=== PATIENT | female | born 1955 | race Caucasian/White ===

== ENCOUNTER → 2018-12-04 00:24 | Outpatient (CLI) | payer SELFPAY ==
[2018-09-01 12:41] VITALS: BMI 29.5
[2018-12-05 00:58] LABS: Thyroid Stim Hormone (TSH) 1.66 uIU/mL (0.358-3.74)
--- OUTSIDE RECORDS SUMMARY | 2019-02-08 20:39 | XMS RPT_ITS ---
:1955 Author Organization [facility] Care Team Providers Name Role Phone Malinda Leon NP-[facility] Attending Unavailable Malinda Leon Referring Unavailable PROBLEMS PROBLEMS DATE TYPE CONDITION / CODE ATTENDING STATUS SOURCE 12/05/2018 Unknown E03.9 - Edward, Active [place] Hypothyroidism, Malinda [facility] unspecified / Hospital E03.9(ICD-10) Repository PROCEDURES PROCEDURES No Procedure Records FoundRESULTS RESULTS OFFICE VISIT Observed: 12/06/2018 Status: F Source: [facility] 12:24 PM [facility] [place] REPOSITORY [facility] [address] [place] [address] OFFICE VISIT Date of Service: 12/04/18 MR#: [id number] Acct: [id number] Name: ISADORA CA Rep #: [id number] : 1955 Provider: KALEB Leon Age/Sex: 63/F Location: [facility] Status: Signed Intake Intake Visit Reasons: TSH Allergies No Known Allergies Allergy (Verified 09/01/18 12:44) Medications losartan 100 mg tablet 100 mg PO QDAY 90 Days #90 tab 09/01/18 [Rx Confirmed 09/01/18] levothyroxine 100 mcg tablet 100 mcg PO DAILY #90 tab 12/05/18 [Rx] PFSH Family History Other FH: throat cancer Heart disease Hypertension larnx cancer HPI HPI (General) HPI HPI: ISADORA CA, is a 63 F who presents to the office today for Assessment AND Plan Orders Orders: Coding Level of Care Code No Charge 12/06/18 1224 <Electronically signed by Malinda DOMINGUEZ> Date Malinda DOMINGUEZ CC: THYROID STIM HORMONE Collected: 12/04/2018 Status: F Source: [facility] (TSH) 4:00 PM [facility] REPOSITORY TYPE CODE TESTS RESULT OUT OF RANGE REFERENCE UNITS LAB L501.9520 0.358-3.74 uIU/mL Normal TSH 1.66 Performed By: #### [id number] #### [place] [facility] [address] [place], [address] OFFICE VISIT Observed: 09/01/2018 Status: F Source: [facility] 12:57 PM [facility] REPOSITORY After Hours [facility] [address] [place] [address] OFFICE VISIT Date of Service: 09/01/18 MR#: [id number] Acct: [id number] Name: ISADORA CA Rep #: [id number] : 1955 Provider: KALEB Leon Age/Sex: 62/F Location: [facility] Status: Signed Intake Vital Signs09/01/18 Height 5 ft 7.5 in 09/01/18 Weight: 191 lb Intake Visit Reasons: ITCHY, WATERY, RED EYES Accompanied by: Self Is patient in pain?: No Allergies No Known Allergies Allergy (Verified 09/01/18 12:44) Medications levothyroxine 100 mcg tablet 100 mcg PO DAILY 09/01/18 [History Confirmed 09/01/18] losartan 100 mg tablet 100 mg PO QDAY 90 Days #90 tab 09/01/18 [Rx Confirmed 09/01/18] prednisolone acetate 1 % eye drops,suspension 1 drp OPHTHALMIC TID 5 Days #10 ml 09/01/18 [Rx Confirmed 09/01/18] Is last menstrual period known: No Post menopausal: Yes PFSH Family History Other FH: throat cancer Heart disease Hypertension larnx cancer HPI HPI (General) HPI HPI: ISADORA CA, is a 62 F who presents to the office today for watery red eyes for 4 days . Thought it was infected and has been using her grandsons antibiotic eye drops sulfa based. She does wear contacts and had a problem with allergic reaction to some kind of contact solution. numbed her eyes with tetracaine then using fluorescein, dyed ou for no abrasions or FB lids clear Rinsed with NS well tolerated well Denies any pain or d/c or visual changes ROS Eyes Eyes: Positive for discharge (watery andvery little yellow in each corner) Exam Const Constitutional: Yes cooperative, Yes healthy appearing Orientation: Yes alert, awake and oriented x3 HENMT Head: Yes normocephalic Ear: Yes hearing grossly normal bilaterally Neck Neck: normal visual inspection Thyroid: thyroid normal Eyes Visual Reeder: Yes normal visual reeder by confrontation Periorbital: Yes periorbital findings normal Eyelid: Yes eyelids normal Pupils: Yes PERRLA Conjunctivae: Yes conjunctivae normal Sclera: Yes scleral abnormality Cornea: Yes fluorescein used (all clear and lids clear also) EOM: Yes EOM intact bilaterally Direct Ophthalmoscopy: Yes normal light reflex Chest Chest palpation AND inspection: Yes normal inspection of the chest Resp Effort AND Inspection: Yes normal respiratory effort Auscultation: Yes clear to auscultation bilaterally Cardio Palpitation: Yes normal PMI Rate: Yes regular rate Rhythm: Yes regular rhythm GI Inspection: Yes normal to inspection Auscultation: Yes normal bowel sounds Musc Cervical Spine: Yes cervical ROM normal Thoracic/Lumbar Spine: Yes thoracic and lumbar spine normal to inspection Skin General: no rashes or lesions noted Lesions: Yes no lesions Extrem General: Yes normal to inspection Neuro General: Yes alert and oriented x3 Cranial Nerves: Yes PERRLA Psych Appearance: Positive grossly normal Mood: Positive congruent mood Affect: Positive normal affect Assessment AND Plan Problems 1. Allergic eye reaction H57.9 2. Red eyes H57.89 Patient Instructions Use the eye drops for 5 days only then follow up with a waist cutter Stop the med for any problems and call increased the losartan to 100 mg a day Medications New: Coding Level of Care Code Off vis,est,level 2 Diagnoses Allergic eye reaction H57.9 Red eyes H57.89 09/01/18 1257 <Electronically signed by Malinda DOMINGUEZ> Date Malinda DOMINGUEZ CC: ALLERGIES ALLERGIES DATE TYPE / CODE NAME / CODE REACTION SEVERITY SOURCE 09/01/2018 Drug No Known Unknown [place] [facility]/4160 Allergies/F00 [facility] [address](SNOMED [id number](RXNOR Repository CT) M) ENCOUNTERS ENCOUNTERS ADMIT/DISCHARGE ACCOUNT ADMITTING ENCOUNTER LOCATION SOURCE NUMBER CLASS 12/04/2018 [id number] Ambulatory [facility] 3 [facility] ing:[facility]SPEC Repository PAYERS PAYERS ENCOUNTER GUARANTOR PAYER SUBSCRIBER SOURCE 12/04/2018 ISADORA Venegas [id number] Primary NOT GIVENUNK [facility] Insurance:SELF PAY [facility] [address]Pjb: [phone] Number: Effective Repository [phone] () Date:2018-12-04
== END ==
PROVIDERS: Referring Provider Nurse Practitioner; Visit Provider Nurse Practitioner
DX: E03.9 Hypothyroidism, unspecified (principal)
CPT/HCPCS: 84443

== ENCOUNTER → 2019-09-26 | Outpatient (CLI) | payer MEDICARE, SELFPAY ==
[2019-09-26 17:52] VITALS: BMI 18.1
[2019-09-27 00:15] LABS: Absolute Lymphocyte Count 2.39 X10^3/uL (0.83-4.51); Absolute Neutrophil Count 3.5 X10^3/uL (2.0-7.7); Basophil# 0.04 X10^3/uL; Basophil% 0.6 % (0-1); Eosinophil# 0.08 X10^3/uL; Eosinophils% 1.2 % (0-5); Hematocrit 42.1 % (37-47); Lymphocyte # 2.39 X10^3/ul (4.0); Lymphocyte % 36.9 % (19-41); Mean Corp Hgb Conc 33.3 g/dL (32-36); Mean Corpuscular Volume 96.3 fL (81-99); Mean Platelet Vol. 9.6 fl (6.2-12.0); Monocyte# 0.46 X10^3/uL; Monocyte% 7.1 % (0-10); NRBC Flagged by Analyzer 0 % (0-5); Platelet Count 216 K/mm3 (150-450); RBC Distribution Width CV 11.6 % (11.6-14.6); RBC Distribution Width SD 41.1 fl (35.1-43.9); Red Blood Count 4.37 M/mm3 (4.2-5.4); White Blood Count 6.5 K/mm3 (4.4-11.0)
[2019-09-27 00:31] LABS: Cholesterol 238 mg/dL (200); High Density Lipoprotein 57 mg/dL; Thyroid Stim Hormone (TSH) 1.75 uIU/mL (0.358-3.74); Triglycerides 177 mg/dL; Very Low Density Lipoprotein 35 mg/dL (5-40)
== END | disposition home or self-care (01) ==
PROVIDERS: Family Provider Nurse Practitioner; PCP Nurse Practitioner; Visit Provider Nurse Practitioner
DX: I10 Essential (primary) hypertension (principal); E03.9 Hypothyroidism, unspecified
CPT/HCPCS: 80061; 84443; 85025

== ENCOUNTER → 2020-10-06 | Outpatient (CLI) | payer MEDICARE, SELFPAY ==
[2020-10-06 19:53] VITALS: BMI 30.3
[2020-10-06 22:23] LABS: Absolute Lymphocyte Count 1.79 X10^3/uL (0.83-4.51); Absolute Neutrophil Count 2.7 X10^3/uL (2.0-7.7); Basophil# 0.04 X10^3/uL; Basophil% 0.8 % (0-1); Eosinophil# 0.09 X10^3/uL; Eosinophils% 1.8 % (0-5); Hematocrit 41.8 % (37-47); Hemoglobin 13.8 g/dL (12.0-15.0); Lymphocyte # 1.79 X10^3/ul (4.0); Lymphocyte % 35.2 % (19-41); Mean Corpuscular Hgb 32.6 pg (27.0-32.0); Mean Corpuscular Volume 98.8 fL (81-99); Mean Platelet Vol. 9.6 fl (6.2-12.0); Monocyte# 0.43 X10^3/uL; Monocyte% 8.5 % (0-10); NRBC Flagged by Analyzer 0 % (0-5); Neutrophil # 2.73 X10^3/uL (2.7-7.7); Neutrophil % 53.7 % (47-70); Platelet Count 225 K/mm3 (150-450); RBC Distribution Width SD 43.4 fl (35.1-43.9); Red Blood Count 4.23 M/mm3 (4.2-5.4); White Blood Count 5.1 K/mm3 (4.4-11.0)
[2020-10-06 22:35] LABS: ALB/GLOB Ratio 1.2 RATIO (0.9-2.4); AST(SGOT) 12 U/L (15-37); Alanine Aminotransfer ALT/SGPT 24 U/L (13-56); Albumin, Serum 3.9 g/dL (3.2-5.0); Alkaline Phosphatase 106 U/L (45-117); Anion Gap 3 (5-15); BUN 21 mg/dL (7-18); BUN/Creat Ratio 19.4 RATIO (10-20); Chloride 107 mmol/L (98-107); Cholesterol 208 mg/dL (200); Creatinine, Serum 1.08 mg/dL (0.55-1.02); EST Glomerular Filtration Rate 54 mL/min (>60); Est Glom Filt Rate - Afr Amer 65 mL/min (>60); Globulin 3.2 g/dL (2.2-4.2); Glucose 98 mg/dL (74-106); High Density Lipoprotein 49 mg/dL; Potassium 4.5 mmol/L (3.5-5.1); Protein, Total 7.1 g/dL (6.4-8.2); Sodium Level 143 mmol/L (136-145); Thyroid Stim Hormone (TSH) 2.52 uIU/mL (0.358-3.74); Triglycerides 280 mg/dL; Very Low Density Lipoprotein 56 mg/dL (5-40)
== END | disposition home or self-care (01) ==
PROVIDERS: PCP Nurse Practitioner; Referring Provider Nurse Practitioner; Visit Provider Nurse Practitioner
DX: E03.9 Hypothyroidism, unspecified (principal); I10 Essential (primary) hypertension
CPT/HCPCS: 80053; 80061; 84443; 85025

== ENCOUNTER 2021-12-22 21:59 | Outpatient (CLI) | payer MEDICARE, SELFPAY ==
[2021-12-22 22:17] LABS: Absolute Lymphocyte Count 2.55 X10^3/uL (0.83-4.51); Absolute Neutrophil Count 3.4 X10^3/uL (2.0-7.7); Basophil# 0.05 X10^3/uL; Basophil% 0.7 % (0-1); Eosinophil# 0.16 X10^3/uL; Eosinophils% 2.4 % (0-5); Hematocrit 41.8 % (37-47); Hemoglobin 14.1 g/dL (12.0-15.0); Lymphocyte # 2.55 X10^3/ul (0.83-4.51); Lymphocyte % 37.6 % (19-41); Mean Corp Hgb Conc 33.7 g/dL (32-36); Mean Corpuscular Hgb 32.4 pg (27.0-32.0); Mean Corpuscular Volume 96.1 fL (81-99); Mean Platelet Vol. 9.4 fl (6.2-12.0); Monocyte# 0.58 X10^3/uL; Monocyte% 8.5 % (0-10); NRBC Flagged by Analyzer 0 % (0-5); Neutrophil # 3.42 X10^3/uL (2.7-7.7); Neutrophil % 50.4 % (47-70); Platelet Count 236 K/mm3 (150-450); RBC Distribution Width CV 12.4 % (11.6-14.6); RBC Distribution Width SD 43.8 fl (35.1-43.9); Red Blood Count 4.35 M/mm3 (4.2-5.4); White Blood Count 6.8 K/mm3 (4.4-11.0)
[2021-12-22 22:32] LABS: Vitamin B12 336 pg/mL (211-911)
[2021-12-22 22:40] LABS: ALB/GLOB Ratio 1.2 RATIO (0.9-2.4); AST(SGOT) 11 U/L (15-37); Alanine Aminotransfer ALT/SGPT 22 U/L (13-56); Albumin, Serum 3.8 g/dL (3.2-5.0); Alkaline Phosphatase 89 U/L (45-117); Anion Gap 7 (5-15); BUN 19 mg/dL (7-18); BUN/Creat Ratio 18.6 RATIO (10-20); Calcium,Total 8.9 mg/dL (8.5-10.1); Chloride 102 mmol/L (98-107); Cholesterol 245 mg/dL (200); Creatinine, Serum 1.02 mg/dL (0.55-1.02); EST Glomerular Filtration Rate 57 mL/min (>60); Est Glom Filt Rate - Afr Amer 69 mL/min (>60); Globulin 3.2 g/dL (2.2-4.2); Glucose 93 mg/dL (74-106); High Density Lipoprotein 53 mg/dL; Potassium 4.1 mmol/L (3.5-5.1); Sodium Level 137 mmol/L (136-145); Triglycerides 225 mg/dL; Very Low Density Lipoprotein 45 mg/dL (5-40)
[2021-12-23 21:50] LABS: Thyroid Stim Hormone (TSH) 2.83 uIU/mL (0.358-3.74)
[2021-12-25 17:19] LABS: Vitamin D 1,25-Dihydroxy 21.4 pg/mL (19.9-79.3)
== END 2021-12-22 23:59 | disposition short-term general hospital (02) ==
PROVIDERS: PCP Nurse Practitioner; Visit Provider Nurse Practitioner
DX: I10 Essential (primary) hypertension (principal); E53.9 Vitamin B deficiency, unspecified; E55.9 Vitamin D deficiency, unspecified; H57.89 Other specified disorders of eye and adnexa; E03.9 Hypothyroidism, unspecified
CPT/HCPCS: 80053; 80061; 82607; 82652; 84443; 85025

== ENCOUNTER → 2023-01-09 | Outpatient (CLI) | payer MEDICARE, SELFPAY ==
[2023-01-09 22:14] LABS: Absolute Lymphocyte Count 2.14 X10^3/uL (0.83-4.51); Absolute Neutrophil Count 2.6 X10^3/uL (2.0-7.7); Basophil# 0.05 X10^3/uL; Basophil% 0.9 % (0-1); Eosinophil# 0.14 X10^3/uL; Eosinophils% 2.6 % (0-5); Hemoglobin 13.8 g/dL (12.0-15.0); Lymphocyte # 2.14 X10^3/ul (0.83-4.51); Lymphocyte % 39.3 % (19-41); Mean Corp Hgb Conc 33.7 g/dL (32-36); Mean Corpuscular Hgb 32.3 pg (27.0-32.0); Mean Platelet Vol. 9.7 fl (6.2-12.0); Monocyte% 9.2 % (0-10); NRBC Flagged by Analyzer 0 % (0-5); Neutrophil # 2.62 X10^3/uL (2.7-7.7); Platelet Count 224 K/mm3 (150-450); RBC Distribution Width CV 12.1 % (11.6-14.6); RBC Distribution Width SD 41.7 fl (35.1-43.9); Red Blood Count 4.27 M/mm3 (4.2-5.4); White Blood Count 5.5 K/mm3 (4.4-11.0)
[2023-01-09 22:40] LABS: ALB/GLOB Ratio 1.1 RATIO (0.9-2.4); AST(SGOT) 13 U/L (15-37); Alanine Aminotransfer ALT/SGPT 24 U/L (13-56); Albumin, Serum 3.7 g/dL (3.2-5.0); Alkaline Phosphatase 97 U/L (45-117); Anion Gap 7 (5-15); BUN 21 mg/dL (7-18); Chloride 105 mmol/L (98-107); Cholesterol 227 mg/dL (200); Creatinine, Serum 1.05 mg/dL (0.55-1.02); EST Glomerular Filtration Rate 55 mL/min (>60); Est Glom Filt Rate - Afr Amer 67 mL/min (>60); Globulin 3.4 g/dL (2.2-4.2); Glucose 107 mg/dL (74-106); High Density Lipoprotein 55 mg/dL; Potassium 4.2 mmol/L (3.5-5.1); Protein, Total 7.1 g/dL (6.4-8.2); Sodium Level 141 mmol/L (136-145); Thyroid Stim Hormone (TSH) 1.73 uIU/mL (0.358-3.74); Triglycerides 205 mg/dL; Very Low Density Lipoprotein 41 mg/dL (5-40)
== END | disposition home or self-care (01) ==
PROVIDERS: PCP Nurse Practitioner; Visit Provider Nurse Practitioner
DX: I10 Essential (primary) hypertension (principal); K21.9 Gastro-esophageal reflux disease without esophagitis; E03.9 Hypothyroidism, unspecified
CPT/HCPCS: 80053; 80061; 84443; 85025

== ENCOUNTER → 2023-02-24 | Outpatient (CLI) | payer MEDICARE, SELFPAY | END | disposition home or self-care (01) | PROVIDERS: PCP Nurse Practitioner; Referring Provider Nurse Practitioner; Visit Provider Nurse Practitioner | DX: N30.90 Cystitis, unspecified without hematuria (principal) | CPT/HCPCS: 87077; 87086; 87088; 87186 ==

== ENCOUNTER → 2024-01-15 | Outpatient (CLI) | payer MEDICARE, SELFPAY ==
[2024-01-15 22:29] LABS: Thyroid Stim Hormone (TSH) 1.59 uIU/mL (0.358-3.74)
== END | disposition home or self-care (01) ==
PROVIDERS: PCP Nurse Practitioner; Visit Provider Nurse Practitioner
DX: E03.9 Hypothyroidism, unspecified (principal); I10 Essential (primary) hypertension
CPT/HCPCS: 84443

== ENCOUNTER → 2024-10-01 | Outpatient (CLI) | payer MEDICARE, SELFPAY ==
[2024-10-01 23:47] LABS: ALB/GLOB Ratio 1.2 RATIO (0.9-2.4); AST(SGOT) 16 U/L (15-37); Alanine Aminotransfer ALT/SGPT 26 U/L (13-56); Albumin, Serum 3.5 g/dL (3.2-5.0); Alkaline Phosphatase 85 U/L (45-117); Anion Gap 3 (5-15); BUN 19 mg/dL (7-18); BUN/Creat Ratio 17.9 RATIO (10-20); Calcium,Total 8.9 mg/dL (8.5-10.1); Chloride 107 mmol/L (98-107); Cholesterol 251 mg/dL (200); Creatinine, Serum 1.06 mg/dL (0.55-1.02); EST Glomerular Filtration Rate 54 mL/min (>60); Est Glom Filt Rate - Afr Amer 66 mL/min (>60); Globulin 2.9 g/dL (2.2-4.2); Glucose 99 mg/dL (74-106); High Density Lipoprotein 51 mg/dL; Potassium 4.8 mmol/L (3.5-5.1); Protein, Total 6.4 g/dL (6.4-8.2); Sodium Level 141 mmol/L (136-145); Triglycerides 312 mg/dL; Very Low Density Lipoprotein 62 mg/dL (5-40)
== END | disposition home or self-care (01) ==
PROVIDERS: PCP Nurse Practitioner; Referring Provider Nurse Practitioner; Visit Provider Nurse Practitioner
DX: I10 Essential (primary) hypertension (principal); E03.9 Hypothyroidism, unspecified
CPT/HCPCS: 80053; 80061; 84443

== ENCOUNTER → 2025-03-20 | Outpatient (CLI) | payer MEDICARE, SELFPAY ==
[2025-03-20 22:22] LABS: Absolute Lymphocyte Count 2.42 X10^3/uL (0.83-4.51); Basophil# 0.04 X10^3/uL; Basophil% 0.5 % (0-1); Eosinophil# 0.12 X10^3/uL; Eosinophils% 1.6 % (0-5); Hematocrit 38.8 % (37-47); Hemoglobin 13.3 g/dL (12.0-15.0); Lymphocyte # 2.42 X10^3/ul (0.83-4.51); Lymphocyte % 32.7 % (19-41); Mean Corp Hgb Conc 34.3 g/dL (32-36); Mean Corpuscular Hgb 32.4 pg (27.0-32.0); Mean Corpuscular Volume 94.6 fL (81-99); Mean Platelet Vol. 9.6 fl (6.2-12.0); Monocyte# 0.78 X10^3/uL; Monocyte% 10.6 % (0-10); NRBC Flagged by Analyzer 0 % (0-5); Neutrophil # 4.01 X10^3/uL (2.7-7.7); Neutrophil % 54.3 % (47-70); Platelet Count 245 K/mm3 (150-450); RBC Distribution Width CV 12.3 % (11.6-14.6); RBC Distribution Width SD 43.1 fl (35.1-43.9); White Blood Count 7.4 K/mm3 (4.4-11.0)
[2025-03-21 06:24] LABS: ALB/GLOB Ratio 1.5 RATIO (0.9-2.4); AST(SGOT) 16 U/L (<=31); Alanine Aminotransfer ALT/SGPT 15 U/L (<=34); Albumin, Serum 4.2 g/dL (3.4-4.8); Alkaline Phosphatase 90 U/L (35-104); Anion Gap 12 (5-15); BUN 22 mg/dL (4-19); BUN/Creat Ratio 21.5 RATIO (10-20); Calcium,Total 9.3 mg/dL (7.6-11.0); Carbon Dioxide 25.8 mmol/L (21.0-32.0); Chloride 102 mmol/L (98-108); Cholesterol 213 mg/dL (<=200); EST Glomerular Filtration Rate 60 (>60); Globulin 2.8 g/dL (2.2-4.2); Glucose 66 mg/dL (70-99); High Density Lipoprotein 46 mg/dL; Low Density Lipoprotein Calc. 131 mg/dL; Potassium 4.1 mmol/L (3.3-5.1); Sodium Level 140 mmol/L (133-145); Total Bilirubin 0.28 mg/dL (0.00-1.30); Triglycerides 180 mg/dL; Very Low Density Lipoprotein 36 mg/dL (5-40); Vitamin B12 360 pg/mL (180-914); cholesterol:hdl ratio screen 4.65
== END | disposition home or self-care (01) ==
PROVIDERS: PCP Nurse Practitioner; Referring Provider Nurse Practitioner; Visit Provider Nurse Practitioner
DX: I10 Essential (primary) hypertension (principal); E53.9 Vitamin B deficiency, unspecified; E03.9 Hypothyroidism, unspecified; K21.9 Gastro-esophageal reflux disease without esophagitis
CPT/HCPCS: 80053; 80061; 82607; 84443; 85025

== ENCOUNTER → 2025-06-23 | Outpatient (CLI) | payer MEDICARE, SELFPAY ==
--- OUTSIDE RECORDS SUMMARY | 2025-06-23 23:04 | XMS RPT_ITS | CCD ---
Author Organization [facility] Care Team Providers Care [employer] Tech Name Role Phone Edward LOPEZ.BUSHRA, Malinda Venegas Primary Care Provide r Azar Munoz MD Unavailable Edward WEBSITE DEVELOPER-C, Malinda Primary Care Provider [phone] Edward WEBSITE DEVELOPER-C, Malinda Attending Provider [phone] Edward WEBSITE DEVELOPER-C, Malinda Referring Provider Edward WEBSITE DEVELOPER, Malinda Referring Unavailable Edward WEBSITE DEVELOPER, Malinda Primary Care Unavailable Edward WEBSITE DEVELOPER, Malinda Attending Unavailable Edward WEBSITE DEVELOPER, Malinda Referring Unavailable Edward WEBSITE DEVELOPER, Malinda Primary Care Unavailable Edward WEBSITE DEVELOPER, Malinda Attending Unavailable Allergies Allergy Classification Reported Allergen(s) Allergy Type Date of Onset Reaction(s) Facility (1 source) cefdinir Drug Allergy 03-27-2025 Diarrhea [facility] (1 source) Lisinopril Drug Allergy 10-01-2024 cough [facility] (1 source) Losartan Drug Allergy 10-01-2024 GERD [facility] (1 source) cefdinir Drug Allergy 03-27-2025 [facility] (1 source) Lisinopril Drug Allergy 10-01-2024 [facility] (1 source) Losartan Drug Allergy 10-01-2024 [facility] Medications Current Medications Medication Drug Class(es) Dates Sig (Normalized) Sig (Original) azithromycin 250 mg oral tablet (1 source) Macrolide Antimicrobial Start: 03-27-2025 take 2 tablets by mouth once daily, then take 1 tablet by mouth once daily at mealtime Azithromycin 250 mg tablet Active 0 PO daily March 27, 2025 12:00am orally daily; 2 po qd for 1 day then 1 po qd for 4 days with food or after eating 24 hr metoprolol succinate 50 mg extended release oral tablet (11 sources) beta-Adrenergic Kavon Start: 01-09-2023 End: 03-20-2025 take 1 tablet by mouth once daily Metoprolol Succinate 50 mg tablet extended release 24 hr Active 50 mg PO DAILY March 20, 2025 6:02pm Completed/Discontinued Medications Medication Drug Class(es) Dates Sig (Normalized) Sig (Original) cannabidiol 100 mg/ml oral solution (5 sources) take 10 mg by mouth twice daily cannabidiol (EPIDIOLEX) 100 mg/mL oral liquid Take 10 mg/kg/dose by mouth twice daily. 0 Active Comment on above: Take 10 mg/kg/dose b y mouth twice daily. cefdinir 300 mg oral capsule (1 source) Cephalosporin Antibacterial Start: 03-20-2025 End: 03-27-2025 take 1 capsule by mouth twice daily Cefdinir 300 mg capsule Discontinued 300 mg PO TWICE A DAY March 20, 2025 12:00am March 27, 2025 6:16pm cephalexin 250 mg oral capsule (5 sources) Cephalosporin Antibacterial Start: 06-21-2019 take 1 capsule by mouth once daily cephALEXin (KEFLEX) 250 mg capsule Take 1 capsule by mouth once daily. 5 capsule 0 06/21/2019 Active Comment on above: Take 1 capsule by [facility] once daily. cholecalciferol, vitamin D3, (VITAMIN D3 ORAL) (2 sources) cholecalciferol, vitamin D3, (VITAMIN D3 ORAL) Take by mouth. 0 Active Comment on above: Take by mouth. ciprofloxacin 500 mg oral tablet (7 sources) Quinolone Antimicrobial Start: 02-24-2023 End: 01-15-2024 take 1 tablet by mouth twice daily Ciprofloxacin Hcl (Cipro) 500 mg tablet Discontinued 500 mg PO TWICE A DAY February 24, 2023 12:00am January 15, 2024 6:38pm Start: 07-30-2021 End: 08-16-2021 take 1 tablet by mouth twice daily Ciprofloxacin Hcl (Cipro) 500 mg tablet Discontinued 500 mg PO TWICE A DAY July 30, 2021 12:00am August 16, 2021 8:03pm cyanocobalamin, vitamin B-12, (VITAMIN B12 ORAL) (2 sources) cyanocobalamin, vitamin B-12, (VITAMIN B12 ORAL) Take by mouth. 0 Active Comment on above: Take by mouth. docosahexaenoic acid/epa (FISH OIL ORAL) (2 sources) docosahexaenoic acid/epa (FISH OIL ORAL) Take by mouth. 0 Active Comment on above: Take by mouth. famotidine 40 mg oral tablet (4 sources) Histamine-2 Receptor Antagonist Start: 2022 End: 2022 take 1 tablet by mouth once daily Famotidine 40 mg tablet Discontinued 40 mg PO DAILY January 09, 2023 1:00am February 24, 2023 3:13pm hydroCHLOROthiazide 12.5 mg oral tablet (4 sources) Thiazide Diuretic Start: 2023 End: 2024 take 1 tablet by mouth once daily in the morning Hydrochlorothiazide 12.5 mg tablet Discontinued 12.5 mg PO EVERY MORNING October 15, 2024 6:23pm March 20, 2025 5:53pm HYDROCHLOROTHIAZ LARS ORAL Take by mouth. 0 Active Comment on above: Take by mouth. 2 ml hylan g-f 20 8 mg/ml prefilled syringe (2 sources) Start: 03-16-2022 End: 03-16-2022 hylan G-F 20 2 mL injection (SYNVISC) Start: 03-02-2022 End: 03-02-2022 hylan G-F 20 2 mL injection (SYNVISC) ibuprofen 800 mg oral tablet (5 sources) Nonsteroidal Anti-inflammatory Drug Start: 06-20-2019 take 1 tablet by mouth every eight hours as needed ibuprofen (MOTRIN) 800 mg tablet Take 1 tablet by mouth every 8 hours as needed for Pain. 30 tablet 3 06/20/2019 Active Comment on above: Take 1 tablet by barb th every 8 hours as needed for Pain. levothyroxine sodium 0.1 mg oral tablet (20 sources) l-Thyroxine Start: 09-01-2018 End: 10-02-2024 take 1 tablet by mouth once daily Levothyroxine 100 mcg tablet Discontinued 100 ug PO DAILY December 05, 2018 10:14pm September 27, 2019 3:22pm Comment on above: Take 100 mcg by mout h daily before breakfast. losartan potassium 50 mg oral tablet (20 sources) Angiotensin 2 Receptor Kavon Start: 10-01-2024 End: 10-01-2024 take 1 tablet by mouth once daily Losartan 50 mg tablet Discontinued 50 mg PO daily October 01, 2024 1:00am October 01, 2024 7:24pm Start: 09-26-2019 End: 01-09-2023 take 1 tablet by mouth once daily Losartan 50 mg tablet Discontinued 50 mg PO DAILY December 22, 2021 5:35pm January 09, 2023 8:51pm Start: 09-01-2018 End: 08-27-2019 take 1 tablet by mouth once daily Losartan 100 mg tablet Discontinued 100 mg PO daily September 01, 2018 12:00am August 26, 2019 12:00am August 27, 2019 12:07am Comment on above: Take 100 mg by mouth once daily. 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 prednisoLONE acetate 10 mg/ml ophthalmic suspension (4 sources) Corticosteroid Start: 09-01-20 End: 09-06-20 Prednisolone Acetate 1 % drops,suspension Discontinued 1 NMA OPHTHALMIC THREE TIMES A DAY 08 24September 01, 2018 12:00am September 05, 2018 12:00am September 06, 2018 12:11am predniSONE 20 mg oral tablet (3 sources) Start: 02-25-20 End: 01-15-20 take 2 tablets by mouth once daily Prednisone 20 mg tablet Discontinued 40 mg PO DAILY February 24, 2023 12:00am January 15, 2024 6:38pm Start: 02-24-2023 End: 01-15-2024 take 40 mg by mouth once daily Prednisone Discontinued 40 MG PO DAILY February 23, 2023 11:00pm January 15, 2024 5:38pm Turmeric extract (2 sources) TURMERIC ORAL Ta ke by mouth. 0 Active Comment on above: Take by mouth. Problems Active Problems Problem Classification Problem Date Documented Date Episodic/Chronic Chronic obstructive pulmonary disease and bronchiectasis (1 source) Bronchitis; Translations: [Bronchitis, not specified as acute or chronic] 03-20-2025 Episodic Esophageal disorders (4 sources) Gastroesophageal reflux disease; Translations: [Gastro-esophageal reflux disease without esophagitis] 01-09-2023 Chronic Essential hypertension (10 sources) Essential hypertension; Translations: [Essential (primary) hypertension] Onset: 06-11-2019 06-11-2019 Chronic Nutritional deficiencies (4 sources) Vitamin D deficiency; Translations: [Vitamin D deficiency, unspecified] 12-22-2021 Chronic Nutritional deficiencies (4 sources) Vitamin B deficiency; Translations: [Vitamin B deficiency, unspecified] 12-22-2021 Episodic Osteoarthritis (12 sources) Arthritis of left knee; Translations: [Unilateral primary osteoarthritis, left knee] Onset: 06-11-2019 06-11-2019 Chronic Other bone disease and musculoskeletal deformities (4 sources) Bone cyst of hand; Translations: [Other cyst of bone, unspecified hand] 12-18-2019 Episodic Other bone disease and musculoskeletal deformities (4 sources) Bone cyst of right foot; Translations: [Solitary bone cyst, right ankle and foot] 12-18-2019 Episodic Other eye disorders (4 sources) Disorder of eye; Translations: [Unspecified disorder of eye and adnexa] 09-01-2018 Episodic Other eye disorders (4 sources) Red eye; Translations: [Other specified disorders of eye and adnexa] 09-01-2018 Episodic Other nervous system disorders (1 source) Difficulty walking; Translations: [Difficulty in walking, not elsewhere classified] 11-08-2024 Chronic Other non-traumatic joint disorders (1 source) Pain in left knee; Translations: [Pain in left knee] Episodic Other non-traumatic joint disorders (8 sources) Hip pain; Translations: [Pain in right hip] 08-16-2021 Episodic Other non-traumatic joint disorders (1 source) Pain in left knee; Translations: [Left knee pain] 11-08-2024 Episodic Other upper respiratory disease (3 sources) Acute bronchospasm; Translations: [Acute bronchospasm] 02-24-2023 Episodic Other upper respiratory infections (1 source) Acute maxillary sinusitis; Translations: [Acute maxillary sinusitis, unspecified] 03-20-2025 Episodic Residual codes; unclassified (1 source) Pain; Translations: [Pain, unspecified] Episodic Thyroid disorders (9 sources) Hypothyroidism; Translations: [Other specified hypothyroidism] Onset: 06-11-2019 06-11-2019 Chronic Urinary tract infections (8 sources) Hematuria co-occurrent and due to cystitis; Translations: [Cystitis, unspecified with hematuria] 07-30-2021 Episodic Past or Other Problems Problem Classification Problem Date Documented Da te Episodic/Chronic Neoplasms of unspecified nature or uncertain behavior (1 source) Neoplasm of uncertain behavior of connective and soft tissue; Translations: [Neoplasm of uncertain behavior of connective and other soft tissue] Onset: 12-25-2019 12-25-2019 Episodic Unclassified (1 source) Problem Results Test Name Value Interpretation Reference Range Facility Comprehensive Metabolic Prof [facility] 03-21-2025 Albumin [Mass/Vol] 4.2 g/dL Normal 3.4-4.8 [facility] Comment on above: Performed By: #### L 503.0106, L100.0100, L500.4050, L500.4100, [id number] #### [facility] [address] [place], [address] Albumin/Globulin [Mass ratio] 1.5 {ratio} Normal 0.9-2.4 [facility] Comment on above: Performed By: #### L 503.0106, L100.0100, L500.4050, L500.4100, [id number] #### [facility] [address] [place], [address] ALK PHOS 90 U/L Normal 35-104 [facility] Comment on above: Performed By: #### L 503.0106, L100.0100, L500.4050, L500.4100, [id number] #### [facility] [address] [place], [address] ALT [Catalytic activity/Vol] 15 U/L Normal <=34 [facility] Comment on above: Performed By: #### L 503.0106, L100.0100, L500.4050, L500.4100, [id number] #### [facility] [address] [place], [address] AST [Catalytic activity/Vol] 16 U/L Normal <=31 [facility] Comment on above: Performed By: #### L 503.0106, L100.0100, L500.4050, L500.4100, [id number] #### [facility] [address] [place], [address] Bilirubin [Mass/Vol] 0.28 mg/dL Normal 0.00-1.30 [facility] Comment on above: Performed By: #### L 503.0106, L100.0100, L500.4050, L500.4100, [id number] #### [facility] [address] [place], [address] BUN/CRE 21.5 RATIO High 10-20 [facility] Comment on above: Performed By: #### L 503.0106, L100.0100, L500.4050, L500.4100, [id number] #### [facility] [address] [place], [address] Calcium [Mass/Vol] 9.3 mg/dL Normal 7.6-11.0 [facility] Comment on above: Performed By: #### L 503.0106, L100.0100, L500.4050, L500.4100, [id number] #### [facility] [address] [place], [address] Chloride [Moles/Vol] 102 mmol/L Normal 98-108 [facility] Comment on above: Performed By: #### L 503.0106, L100.0100, L500.4050, L500.4100, [id number] #### [facility] [address] [place], [address] CO2 [Moles/Vol] 25.8 mmol/L Normal 21.0-32.0 [facility] Comment on above: Performed By: #### L 503.0106, L100.0100, L500.4050, L500.4100, [id number] #### [facility] [address] [place], [address] Creatinine [Mass/Vol] 1.00 mg/dL Normal 0.70-1.20 [facility] Comment on above: Performed By: #### L 503.0106, L100.0100, L500.4050, L500.4100, [id number] #### [facility] [address] [place], [address] GAP 12 Normal 5-15 [facility] Comment on above: Performed By: #### L 503.0106, L100.0100, L500.4050, L500.4100, [id number] #### [facility] [address] [place], [address] GFR/1.73 sq M.predicted among non-blacks MDRD (S/P/Bld) [Vol rate/Area] 60 mL/min/{1.73_m2} Normal >60 [facility] Comment on above: Result Comment: mL/m in/1.73m2 CKD-EPI Creatinine Equation (2020) Performed By: #### L 503.0106, L100.0100, L500.4050, L500.4100, [id number] #### [facility] [address] [place], [address] Globulin (S) [Mass/Vol] 2.8 g/dL Normal 2.2-4.2 [facility] Comment on above: Performed By: #### L 503.0106, L100.0100, L500.4050, L500.4100, [id number] #### [facility] [address] [place], [address] Glucose [Mass/Vol] 66 mg/dL Low 70-99 [facility] Comment on above: Performed By: #### L 503.0106, L100.0100, L500.4050, L500.4100, [id number] #### [facility] [address] [place], [address] Potassium [Moles/Vol] 4.1 mmol/L Normal 3.3-5.1 [facility] Comment on above: Performed By: #### L 503.0106, L100.0100, L500.4050, L500.4100, [id number] #### [facility] [address] [place], [address] Sodium [Moles/Vol] 140 mmol/L Normal 133-145 [facility] Comment on above: Performed By: #### L 503.0106, L100.0100, L500.4050, L500.4100, [id number] #### [facility] [address] [place], [address] T PROT 7.0 g/dL Normal 5.9-8.4 [facility] Comment on above: Performed By: #### L 503.0106, L100.0100, L500.4050, L500.4100, [id number] #### [facility] [address] [place], [address] Urea nitrogen [Mass/Vol] 22 mg/dL High 4-19 [facility] Comment on above: Performed By: #### L 503.0106, L100.0100, L500.4050, L500.4100, [id number] #### [facility] [address] [place], [address] Lipid Profileon 03-21-2025 CHOL:HDL 4.65 Normal [facility] Comment on above: Performed By: #### L 503.0106, L100.0100, L500.4050, L500.4100, [id number] #### [facility] [address] [place], [address] Cholesterol [Mass/Vol] 213 mg/dL High <=200 [facility] Comment on above: Result Comment: Chol esterol level, Desirable <200 mg/dL Borderline high cholesterol 200-239 mg/dL High cholesterol >=240 mg/dL Recommendations of the NCEP Adult Treatment Panel for the following risk-cutoff thresholds for the [place] population. Performed By: #### L 503.0106, L100.0100, L500.4050, L500.4100, [id number] #### [facility] [address] [place], [address] Cholesterol in HDL [Mass/Vol] 46 mg/dL Normal [facility] Comment on above: Result Comment: Marlee onal Cholesterol Education Program (NCEP) guidelines: <40 mg/dL: Low HDL-cholesterol (major risk factor for CHD) >= 60 mg/dL: High HDL-cholesterol (negative risk factor for CHD) HDL-cholesterol is affected by a number of factors, e.g. smoking, exercise, hormones, sex and age. Performed By: #### L 503.0106, L100.0100, L500.4050, L500.4100, [id number] #### [facility] [address] [place], [address] Cholesterol in LDL [Mass/Vol] 131 mg/dL Normal [facility] Comment on above: Result Comment: Bord bhmujl=834-661 mg/dL Higher Kfxw=886 mg/dL or greater Performed By: #### L 503.0106, L100.0100, L500.4050, L500.4100, [id number] #### [facility] [address] [place], [address] Cholesterol in VLDL [Mass/Vol] 36 mg/dL Normal 5-40 [facility] Comment on above: Performed By: #### L 503.0106, L100.0100, L500.4050, L500.4100, [id number] #### [facility] [address] [place], [address] Triglyceride [Mass/Vol] 180 mg/dL Normal [facility] Comment on above: Result Comment: The drugs N-Acetylcysteine and Metamizole may falsely depress this assay. Normal range: <150 mg/dL Borderline High: 150-199 mg/dL High: 200-499 mg/dL Very High: >500 mg/dL Performed By: #### L 503.0106, L100.0100, L500.4050, L500.4100, [id number] #### [facility] [address] [place], [address] Thyroid Stim Hormone (TSH)on 03-21-2025 TSH 1.300 uIU/mL Normal 0.300-4.200 [facility] Comment on above: Performed By: #### L 503.0106, L100.0100, L500.4050, L500.4100, [id number] #### [facility] [address] [place], [address] Vitamin B12on 03-21-2025 Cobalamin (Vitamin B12) [Mass/Vol] 360 pg/mL Normal 180-914 [facility] Comment on above: Performed By: #### L 503.0106, L100.0100, L500.4050, L500.4100, [id number] #### [facility] [address] [place], [address] Absolute lymphocyte countOrd ered By: Malinda Leon on 03-20-2025 Lymphocytes Auto (Unsp spec) [#/Vol] 2.42 10*3/uL 0.83-4.51 [facility] Absolute neutrophil countOrd ered By: Malinda Leon on 03-20-2025 Neutrophils (Bld) [#/Vol] 4.0 10*3/uL 2.0-7.7 [facility] Anion gap in Serum or Plasma Ordered By: Malinda Leon on 03-20-2025 Anion gap [Moles/Vol] 12 mmol/L 5-15 [facility] Automated lymphocyte count a s percentage of total leukocytesOrdered By: Malinda Leon on 03-20-2025 Lymphocytes/100 WBC Auto (Unsp spec) 32.7 % 19-41 [facility] BUN/creatinine ratioOrdered By: Malinda Bashirson on 03-20-2025 Urea nitrogen/Creatinine [Mass ratio] 21.5 mg/mg High 10-20 [facility] Basophil percentageOrdered B y: Malindaleny BashirLeon on 03-20-2025 Basophils/100 WBC (Bld) 0.5 % 0-1 [facility] Bilirubin, totalOrdered By: Malinda Leon on 03-20-2025 Bilirubin [Mass/Vol] 0.28 mg/dL 0.00-1.30 [facility] CBC W/Diff, Automatedon Absolute Lymph 2.42 X10 3/uL Normal 0.83-4.51 [facility] Comment on above: Performed By: #### L 503.0106, L100.0100, L500.4050, L500.4100, [id number] #### [facility] [address] [place], [address] Absolute Neut 4.0 X10 3/uL Normal 2.0-7.7 [facility] Comment on above: Performed By: #### L 503.0106, L100.0100, L500.4050, L500.4100, [id number] #### [facility] [address] [place], [address] Basophils/100 WBC (Bld) 0.5 % Normal 0-1 [facility] Comment on above: Performed By: #### L 503.0106, L100.0100, L500.4050, L500.4100, [id number] #### [facility] [address] [place], [address] Eosinophils/100 WBC (Bld) 1.6 % Normal 0-5 [facility] Comment on above: Performed By: #### L 503.0106, L100.0100, L500.4050, L500.4100, [id number] #### [facility] [address] [place], [address] Erythrocyte distribution width (RBC) [Ratio] 12.3 % Normal 11.6-14.6 [facility] Comment on above: Performed By: #### L 503.0106, L100.0100, L500.4050, L500.4100, [id number] #### [facility] [address] [place], [address] Hematocrit (Bld) [Volume fraction] 38.8 % Normal 37-47 [facility] Comment on above: Performed By: #### L 503.0106, L100.0100, L500.4050, L500.4100, [id number] #### [facility] [address] [place], [address] Hemoglobin (Bld) [Mass/Vol] 13.3 g/dL Normal 12.0-15.0 [facility] Comment on above: Performed By: #### L 503.0106, L100.0100, L500.4050, L500.4100, [id number] #### [facility] [address] [place], [address] IG% 0.300 Normal 0.0-0.9 [facility] Comment on above: Result Comment: IG% - Immature Granulocytes (promyelocytes, myelocytes and metamyelocytes) > 1% indicates that a LEFT SHIFT is Present. Performed By: #### L 503.0106, L100.0100, L500.4050, L500.4100, [id number] #### [facility] [address] [place], [address] Lymphocytes/100 WBC (Bld) 32.7 % Normal 19-41 [facility] Comment on above: Performed By: #### L 503.0106, L100.0100, L500.4050, L500.4100, [id number] #### [facility] [address] [place], [address] MCH (RBC) [Entitic mass] 32.4 pg High 27.0-32.0 [facility] Comment on above: Performed By: #### L 503.0106, L100.0100, L500.4050, L500.4100, [id number] #### [facility] [address] [place], [address] MCHC (RBC) [Mass/Vol] 34.3 g/dL Normal 32-36 [facility] Comment on above: Performed By: #### L 503.0106, L100.0100, L500.4050, L500.4100, [id number] #### [facility] [address] [place], [address] MCV (RBC) [Entitic vol] 94.6 fL Normal 81-99 [facility] Comment on above: Performed By: #### L 503.0106, L100.0100, L500.4050, L500.4100, [id number] #### [facility] [address] [place], [address] Monocytes/100 WBC (Bld) 10.6 % High 0-10 [facility] Comment on above: Performed By: #### L 503.0106, L100.0100, L500.4050, L500.4100, [id number] #### [facility] [address] [place], [address] Neutrophils/100 WBC (Bld) 54.3 % Normal 47-70 [facility] Comment on above: Performed By: #### L 503.0106, L100.0100, L500.4050, L500.4100, [id number] #### [facility] [address] [place], [address] Nucleated RBC (Bld) [#/Vol] 0 10*3/uL Normal 0-5 [facility] Comment on above: Performed By: #### L 503.0106, L100.0100, L500.4050, L500.4100, [id number] #### [facility] [address] [place], [address] Platelet mean volume (Bld) [Entitic vol] 9.6 fL Normal 6.2-12.0 [facility] Comment on above: Performed By: #### L 503.0106, L100.0100, L500.4050, L500.4100, [id number] #### [facility] [address] [place], [address] Platelets (Bld) [#/Vol] 245 10*3/uL Normal 150-450 [facility] Comment on above: Performed By: #### L 503.0106, L100.0100, L500.4050, L500.4100, [id number] #### [facility] [address] [place], [address] RBC (Bld) [#/Vol] 4.10 10*6/uL Low 4.2-5.4 [facility] Comment on above: Performed By: #### L 503.0106, L100.0100, L500.4050, L500.4100, L501.9520 #### [facility] [address] [place], [address] RDW SD 43.1 fl Normal 35.1-43.9 [facility] Comment on above: Performed By: #### L 503.0106, L100.0100, L500.4050, L500.4100, [id number] #### [facility] [address] [place], [address] WBC (Bld) [#/Vol] 7.4 10*3/uL Normal 4.4-11.0 [facility] Comment on above: Performed By: #### L 503.0106, L100.0100, L500.4050, L500.4100, [id number] #### [facility] [address] [place], [address] Calculated very low density lipoprotein (VLDL) cholesterol measurementOrdered By: Malinda Leon on 03-20-2025 Calculated very low density lipoprotein (VLDL) cholesterol measurement 36 mg/dL 5-40 [facility] Carbon dioxide, total [Moles /volume] in Central venous bloodOrdered By: Malinda Leon on 03-20-2025 CO2 [Moles/Vol] 25.8 mmol/L 21.0-32.0 [facility] Chloride assayOrdered By: Do ra Leon on 03-20-2025 Chloride [Moles/Vol] 102 mmol/L 98-108 [facility] Eosinophil percentageOrdered By: Malinda Leon on 03-20-2025 Eosinophils/100 WBC (Bld) 1.6 % 0-5 [facility] Erythrocyte distribution wid th ratioOrdered By: Malinda Leon on 03-20-2025 Erythrocyte distribution width (RBC) [Ratio] 12.3 % 11.6-14.6 [facility] Erythrocyte distribution wid th standard deviationOrdered By: Malinda Leon on 03-20-2025 Erythrocyte distribution width (RBC) [Ratio] 43.1 fl 35.1-43.9 [facility] Glomerular filtration rate ( GFR) estimation/1.73 sq m using serum, plasma, or whole bOrdered By: Malinda Leon on 03-20-2025 GFR/1.73 sq M.predicted among non-blacks MDRD (S/P/Bld) [Vol rate/Area] 60 mL/min/{1.73_m2} >60 [facility] Comment on above: mL/min/1.73m2 CKD-EP I Creatinine Equation (2020) Hematocrit Auto (Bld) [Volum e fraction]Ordered By: Malinda Leon on 03-20-2025 Hematocrit (Bld) [Volume fraction] 38.8 % 37-47 [facility] Hemoglobin measurementOrdere d By: Malinda Leon on 03-20-2025 Hemoglobin (Bld) [Mass/Vol] 13.3 g/dL 12.0-15.0 [facility] Immature granulocytes/100 WB C Auto (Bld)Ordered By: Malinda Leon on 03-20-2025 Immature granulocytes/100 WBC (Bld) 0.300 % 0.0-0.9 [facility] Comment on above: IG% - Immature Granu locytes (promyelocytes, myelocytes and metamyelocytes) > 1% indicates that a LEFT SHIFT is Present. LDL calc ser/plasOrdered By: Malinda Leon on 03-20-2025 Cholesterol in LDL [Mass/Vol] 131 mg/dL [facility] Comment on above: Uouaozoqwm=381-854 m g/dL & Higher Vxrh=415 mg/dL or greater Laboratory - Chemistry and C hemistry - challengeOrdered By: Malinda Leon on 03-20-2025 AST [Catalytic activity/Vol] 16 U/L <32 [facility] MCV (mean corpuscular volume ) determinationOrdered By: Malinda Leon on 03-20-2025 MCV (RBC) [Entitic vol] 94.6 fL 81-99 [facility] Mean corpuscular hemoglobin (MCH) determinationOrdered By: Malinda Leon on 03-20-2025 MCH (RBC) [Entitic mass] 32.4 pg High 27.0-32.0 [facility] Mean corpuscular hemoglobin concentration (MCHC) determinationOrdered By: Malinda Leon on 03-20-2025 MCHC (RBC) [Mass/Vol] 34.3 g/dL 32-36 [facility] Mean platelet volume determi nationOrdered By: Malinda Leon on 03-20-2025 Platelet mean volume (Bld) [Entitic vol] 9.6 fL 6.2-12.0 [facility] Monocyte percentageOrdered B y: Malinda Leon on 03-20-2025 Monocytes/100 WBC (Bld) 10.6 % High 0-10 [facility] Neutrophil percentageOrdered By: Malinda Leon on 03-20-2025 Neutrophils/100 WBC (Bld) 54.3 % 47-70 [facility] Nucleated red blood cell per centageOrdered By: Malinda Leon on 03-20-2025 Nucleated RBC/100 WBC (Bld) [Ratio] 0 % 0-5 [facility] Platelet countOrdered By: Do ra Leon on 03-20-2025 Platelets (Bld) [#/Vol] 245 10*3/uL 150-450 [facility] Potassium measurement (mass/ volume)Ordered By: Malinda Leon on 03-20-2025 Potassium (Unsp spec) [Mass/Vol] 4.1 mmol/L 3.3-5.1 [facility] RBC Auto (Bld) [#/Vol]Ordere d By: Malinda Leon on 03-20-2025 RBC (Bld) [#/Vol] 4.10 10*6/uL Low 4.2-5.4 [facility] Screening total cholesterol/ high density lipoprotein (HDL) cholesterol ratioOrdered By: Malinda Leon on 03-20-2025 Cholesterol.total/Edita sterol in HDL [Mass ratio] 4.65 {ratio} [facility] Serum creatinine measurement (mass/volume)Ordered By: Malinda Leon on 03-20-2025 Creatinine [Mass/Vol] 1.00 mg/dL 0.70-1.20 [facility] Serum globulin measurementOr dered By: Malinda Leon on 03-20-2025 Globulin (S) [Mass/Vol] 2.8 g/dL 2.2-4.2 [facility] Serum glucose measurement (m ass/volume)Ordered By: Malinda Leon on 03-20-2025 Glucose [Mass/Vol] 66 mg/dL Low 70-99 [facility] Serum or plasma alanine varela otransferase (ALT) measurementOrdered By: Malinda Leon on 03-20-2025 ALT [Catalytic activity/Vol] 15 U/L <35 [facility] Serum or plasma albumin mildred urement (mass/volume)Ordered By: Malinda Leon on 03-20-2025 Albumin [Mass/Vol] 4.2 g/dL 3.4-4.8 [facility] Serum or plasma albumin/glob ulin mass ratioOrdered By: Malinda Leon on 03-20-2025 Albumin/Globulin [Mass ratio] 1.5 {ratio} 0.9-2.4 [facility] Serum or plasma alkaline micky sphatase measurementOrdered By: Malinda Leon on 03-20-2025 ALP [Catalytic activity/Vol] 90 U/L 35-104 [facility] Serum or plasma calcium mildred urement (mass/volume)Ordered By: Malinda Leon on 03-20-2025 Calcium [Mass/Vol] 9.3 mg/dL 7.6-11.0 [facility] Serum or plasma cholesterol in HDL measurement (mass/volume)Ordered By: Malinda Leon on 03-20-2025 Cholesterol in HDL [Mass/Vol] 46 mg/dL >40 [facility] Comment on above: National Cholesterol Education Program (NCEP) guidelines:<40 mg/dL: Low HDL-cholesterol (major risk factor for CHD)>= 60 mg/dL: High HDL-cholesterol (negative risk factor for CHD)HDL-cholesterol is affected by a number of factors, e.g. smoking, exercise, hormones, sex and age. Serum or plasma cholesterol measurement (mass/volume)Ordered By: Malinda Leon on 03-20-2025 Cholesterol [Mass/Vol] 213 mg/dL High <201 [facility] Comment on above: Cholesterol level, D esirable <200 mg/dLBorderline high cholesterol 200-239 mg/dLHigh cholesterol >=240 mg/dLRecommendations of the NCEP Adult Treatment Panel for the following risk-cutoff thresholds for the [place] population. Serum or plasma urea nitroge n measurement (mass/volume)Ordered By: Malinda Leon on 03-20-2025 Urea nitrogen [Mass/Vol] 22 mg/dL High 4-19 [facility] Sodium levelOrdered By: Malinda Leon on 03-20-2025 Sodium [Moles/Vol] 140 mmol/L 133-145 [facility] TSH DL <= 0.005 mIU/L QnOrde red By: Malinda Leon on 03-20-2025 TSH Qn 1.300 uIU/mL 0.300-4.200 [facility] Total proteinOrdered By: Tulio Leon on 03-20-2025 Protein [Mass/Vol] 7.0 g/dL 5.9-8.4 [facility] Triglycerides measurementOrd ered By: Malinda Leon on 03-20-2025 Triglyceride [Mass/Vol] 180 mg/dL <199 [facility] Comment on above: The drugs N-Acetylcy steine and Metamizole may falsely depress this assay. Normal range: <150 mg/dLBorderline High: 150-199 mg/dLHigh: 200-499 mg/dLVery High: >500 mg/dL Vitamin B12 ser/plasOrdered By: Malinda Leon on 03-20-2025 Cobalamin (Vitamin B12) [Mass/Vol] 360 pg/mL 180-914 [facility] White blood cell (WBC) count Ordered By: Malinda Leon on 03-20-2025 WBC (Bld) [#/Vol] 7.4 10*3/uL 4.4-11.0 [facility] Comprehensive Metabolic Prof ilon 10-01-2024 Albumin [Mass/Vol] 3.5 g/dL Normal 3.2-5.0 [facility] Comment on above: Performed By: #### L 500.4050, L500.4100, L501.9520 #### [facility] [address] [place], [address] Albumin/Globulin [Mass ratio] 1.2 {ratio} Normal 0.9-2.4 [facility] Comment on above: Performed By: #### L 500.4050, L500.4100, L501.9520 #### [facility] [address] [place], [address] ALK P 85 U/L Normal 45-117 [facility] Comment on above: Performed By: #### L 500.4050, L500.4100, L501.9520 #### [facility] [address] [place], [address] ALT [Catalytic activity/Vol] 26 U/L Normal 13-56 [facility] Comment on above: Performed By: #### L 500.4050, L500.4100, L501.9520 #### [facility] [address] [place], [address] AST [Catalytic activity/Vol] 16 U/L Normal 15-37 [facility] Comment on above: Performed By: #### L 500.4050, L500.4100, L501.9520 #### [facility] [address] [place], [address] Bilirubin [Mass/Vol] 0.50 mg/dL Normal 0.20-1.00 [facility] Comment on above: Result Comment: For patients on eltrombopag therapy, use of Dimension [place] TBIL is not recommended. Performed By: #### L 500.4050, L500.4100, L501.9520 #### [facility] [address] [place], [address] BUN/CRE 17.9 RATIO Normal 10-20 [facility] Comment on above: Performed By: #### L 500.4050, L500.4100, [id number] #### [facility] [address] [place], [address] CA,Total 8.9 mg/dL Normal 8.5-10.1 [facility] Comment on above: Performed By: #### L 500.4050, L500.4100, [id number] #### [facility] [address] [place], [address] Chloride [Moles/Vol] 107 mmol/L Normal 98-107 [facility] Comment on above: Performed By: #### L 500.4050, L500.4100, [id number] #### [facility] [address] [place], [address] CO2 [Moles/Vol] 31.0 mmol/L Normal 21.0-32.0 [facility] Comment on above: Performed By: #### L 500.4050, L500.4100, [id number] #### [facility] [address] [place], [address] Creatinine [Mass/Vol] 1.06 mg/dL High 0.55-1.02 [facility] Comment on above: Result Comment: The validity of the calculated GFR GFRAA in patients over 70 years has not been determined. Clinical correlation is essential. Performed By: #### L 500.4050, L500.4100, L501.9520 #### [facility] [address] [place], [address] EST GFR - AA 66 mL/min Normal >60 [facility] Comment on above: Result Comment: Afri can [place] GFR Calc Performed By: #### L 500.4050, L500.4100, [id number] #### [facility] [address] [place], [address] GAP 3 Low 5-15 [facility] Comment on above: Performed By: #### L 500.4050, L500.4100, [id number] #### [facility] [address] [place], [address] GFR/1.73 sq M.predicted among non-blacks MDRD (S/P/Bld) [Vol rate/Area] 54 mL/min/{1.73_m2} Low >60 [facility] Comment on above: Result Comment: Non- GFR Calc Performed By: #### L 500.4050, L500.4100, [id number] #### [facility] [address] [place], [address] Globulin (S) [Mass/Vol] 2.9 g/dL Normal 2.2-4.2 [facility] Comment on above: Performed By: #### L 500.4050, L500.4100, [id number] #### [facility] [address] [place], [address] Glucose [Mass/Vol] 99 mg/dL Normal 74-106 [facility] Comment on above: Performed By: #### L 500.4050, L500.4100, [id number] #### [facility] [address] [place], [address] Potassium [Moles/Vol] 4.8 mmol/L Normal 3.5-5.1 [facility] Comment on above: Performed By: #### L 500.4050, L500.4100, [id number] #### [facility] [address] [place], [address] Sodium [Moles/Vol] 141 mmol/L Normal 136-145 [facility] Comment on above: Performed By: #### L 500.4050, L500.4100, [id number] #### [facility] [address] [place], [address] T PROT 6.4 g/dL Normal 6.4-8.2 [facility] Comment on above: Performed By: #### L 500.4050, L500.4100, [id number] #### [facility] [address] [place], [address] Urea nitrogen [Mass/Vol] 19 mg/dL High 7-18 [facility] Comment on above: Performed By: #### L 500.4050, L500.4100, L501.9520 #### [facility] [address] [place], [address] Lipid Profileon 10-01-2024 Cholesterol [Mass/Vol] 251 mg/dL High 200 [facility] Comment on above: Result Comment: <200 mg/dL Desirable 200-240 mg/dL Borderline >240 mg/dL High Risk Performed By: #### L 500.4050, L500.4100, L501.9520 #### [facility] [address] [place], [address] Cholesterol in HDL [Mass/Vol] 51 mg/dL Normal [facility] Comment on above: Result Comment: The drugs N-Acetylcysteine and Metamizole may falsely depress this assay. Reference Range HDL <40 mg/dL Low HDL Cholesterol HDL >or= 60 mg/dL High HDL Cholesterol Performed By: #### L 500.4050, L500.4100, L501.9520 #### [facility] [address] [place], [address] Cholesterol in LDL [Mass/Vol] 138 mg/dL High 0-130 [facility] Comment on above: Performed By: #### L 500.4050, L500.4100, [id number] #### [facility] [address] [place], [address] Cholesterol in VLDL [Mass/Vol] 62 mg/dL High 5-40 [facility] Comment on above: Performed By: #### L 500.4050, L500.4100, [id number] #### [facility] [address] [place], [address] Triglyceride [Mass/Vol] 312 mg/dL High [facility] Comment on above: Result Comment: The drugs N-Acetylcysteine and Metamizole may falsely depress this assay. Serum Triglycerides Reference Interval Normal <150 mg/dL Borderline high 150 - 199 mg/dL High 200 - 499 mg/dL Very High > or = 500 mg/dL Performed By: #### L 500.4050, L500.4100, L501.9520 #### [facility] [address] [place], [address] Thyroid Stim Hormone (TSH)on 10-01-2024 TSH 2.950 uIU/mL Normal 0.358-3.740 [facility] Comment on above: Performed By: #### L 500.4050, L500.4100, [id number] #### [facility] [address] [place], [address] Serum or plasma thyroid stim ulating hormone (TSH) measurement (units/volume)Ordered By: Malinda Leon on 01-15-2024 TSH Qn 1.59 uIU/mL 0.358-3.74 [facility] Culture, urineOrdered By: Do ra Leon on 02-26-2023 Bacteria identified Cx Nom (U) Escherichia coli [facility] Absolute lymphocyte countOrd ered By: Malinda Leon on 01-09-2023 Lymphocytes Auto (Unsp spec) [#/Vol] 2.14 10*3/uL 0.83-4.51 [facility] Basophil percentageOrdered B y: Malinda Leon on 01-09-2023 Basophils/100 WBC (Bld) 0.9 % 0-1 [facility] Bilirubin [Mass/Vol] 0.50 mg/dL 0.20-1.00 [facility] Comment on above: For patients on eltr ombopag therapy, use of Dimension [place] TBIL is not recommended. Chloride [Moles/Vol] 105 mmol/L 98-107 [facility] Cholesterol [Mass/Vol] 227 mg/dL <200 [facility] Comment on above: <200 mg/dL Desirable 200-240 mg/dL Borderline >240 mg/dL High Risk Eosinophils/100 WBC (Bld) 2.6 % 0-5 [facility] Glucose [Mass/Vol] 107 mg/dL 74-106 [facility] Comment on above: Fasting Glucose resu lt from 100 to 125 mg/dL suggests IMPAIRED HOMEOSTASIS per A.D.A. criteria. Neutrophils (Bld) [#/Vol] 2.6 10*3/uL 2.0-7.7 [facility] Neutrophils/100 WBC (Bld) 48.0 % 47-70 [facility] Potassium [Moles/Vol] 4.2 mmol/L 3.5-5.1 [facility] Protein [Mass/Vol] 7.1 g/dL 6.4-8.2 [facility] Sodium [Moles/Vol] 141 mmol/L 136-145 [facility] Triglyceride [Mass/Vol] 205 mg/dL <199 [facility] Comment on above: The drugs N-Acetylcy steine and Metamizole may falsely depress this assay.Serum Triglycerides Reference Interval Normal <150 mg/dL Borderline high 150 - 199 mg/dL High 200 - 499 mg/dL Very High > or = 500 mg/dL WBC (Bld) [#/Vol] 5.5 10*3/uL 4.4-11.0 [facility] Blood erythrocytes count (nu mber/volume)Ordered By: Malinda Leon on 01-09-2023 RBC (Bld) [#/Vol] 4.27 10*6/uL 4.2-5.4 [facility] Blood hemoglobin measurement (mass/volume)Ordered By: Malinda Leon on 01-09-2023 Hemoglobin (Bld) [Mass/Vol] 13.8 g/dL 12.0-15.0 [facility] Blood lymphocytes/100 leukoc ytesOrdered By: Malinda Leon on 01-09-2023 Lymphocytes/100 WBC (Bld) 39.3 % 19-41 [facility] Blood monocytes/100 leukocyt esOrdered By: Malinda Leon on 01-09-2023 Monocytes/100 WBC (Bld) 9.2 % 0-10 [facility] Blood platelet mean volumeOr dered By: Malinda Leon on 01-09-2023 Platelet mean volume (Bld) [Entitic vol] 9.7 fL 6.2-12.0 [facility] Determination of erythrocyte mean corpuscular volume (MCV)Ordered By: Malinda Leon on 01-09-2023 MCV (RBC) [Entitic vol] 96.0 fL 81-99 [facility] Hematocrit Auto (Bld) [Volum e fraction]Ordered By: Malinda Leon on 01-09-2023 Hematocrit (Bld) [Volume fraction] 41.0 % 37-47 [facility] - Chemistry and C hemistry - challengeOrdered By: Malinda Leon on 01-09-2023 ALP [Catalytic activity/Vol] 97 U/L 45-117 [facility] ALT [Catalytic activity/Vol] 24 U/L 13-56 [facility] CO2 [Moles/Vol] 29.0 mmol/L 21.0-32.0 [facility] Globulin (S) [Mass/Vol] 3.4 g/dL 2.2-4.2 [facility] Urea nitrogen/Creatinine [Mass ratio] 20.0 mg/mg 10-20 [facility] - Hematology and Cell countsOrdered By: Malinda Leon on 01-09-2023 Erythrocyte distribution width (RBC) [Entitic vol] 41.7 fL 35.1-43.9 [facility] Erythrocyte distribution width (RBC) [Ratio] 12.1 % 11.6-14.6 [facility] Immature granulocytes/100 WBC (Bld) 0.000 % 0.0-0.9 [facility] Comment on above: IG% - Immature Granu locytes (promyelocytes, myelocytes and metamyelocytes) > 1% indicates that a LEFT SHIFT is Present. MCH (RBC) [Entitic mass] 32.3 pg 27.0-32.0 [facility] Nucleated RBC/100 WBC (Bld) [Ratio] 0 % 0-5 [facility] MCHC Auto (RBC) [Mass/Vol]Or dered By: Malinda Leon on 01-09-2023 MCHC (RBC) [Mass/Vol] 33.7 g/dL 32-36 [facility] No Panel InformationOrdered By: Malinda Leon on 01-09-2023 Estimated GFR (MDRD) Amer 67 mL/min >60 [facility] Comment on above: GFR Calc Estimated GFR (MDRD) Non-Af Amer 55 mL/min >60 [facility] Comment on above: Non- GFR Calc Thyroid Stimulating Hormone (TSH) 1.73 uIU/mL 0.358-3.74 [facility] Platelets bldOrdered By: Tulio Leon on 01-09-2023 Platelets (Bld) [#/Vol] 224 10*3/uL 150-450 [facility] Serum or plasma albumin mildred urement (mass/volume)Ordered By: Malinda Leon on 01-09-2023 Albumin [Mass/Vol] 3.7 g/dL 3.2-5.0 [facility] Serum or plasma albumin/glob ulin mass ratioOrdered By: Malinda Leon on 01-09-2023 Albumin/Globulin [Mass ratio] 1.1 {ratio} 0.9-2.4 [facility] Serum or plasma calcium mildred urement (mass/volume)Ordered By: Malinda Leon on 01-09-2023 Calcium [Mass/Vol] 9.0 mg/dL 8.5-10.1 [facility] Serum or plasma cholesterol in HDL measurement (mass/volume)Ordered By: Malinda Leon on 01-09-2023 Cholesterol in HDL [Mass/Vol] 55 mg/dL >40 [facility] Comment on above: The drugs N-Acetylcy steine and Metamizole may falsely depress this assay. Reference Range HDL <40 mg/dL Low HDL Cholesterol HDL >or= 60 mg/dL High HDL Cholesterol Serum or plasma cholesterol in VLDL measurement (mass/volume)Ordered By: Malinda Leon on 01-09-2023 Cholesterol in VLDL [Mass/Vol] 41 mg/dL 5-40 [facility] Serum or plasma creatinine m easurement (mass/volume)Ordered By: Malinda Leon on 01-09-2023 Creatinine [Mass/Vol] 1.05 mg/dL 0.55-1.02 [facility] Comment on above: The validity of the calculated GFR & GFRAA in patients over 70 years has not been determined. Clinical correlation is essential. Serum or plasma low density lipoprotein (LDL) cholesterol measurement (mass/volume)Ordered By: Malinda Leon on 01-09-2023 Cholesterol in LDL [Mass/Vol] 131 mg/dL 0-130 [facility] Serum or plasma urea nitroge n measurement (mass/volume)Ordered By: Malinda Leon on 01-09-2023 Urea nitrogen [Mass/Vol] 21 mg/dL 7-18 [facility] Thin prep Papanicolaou smear with manual screeningOrdered By: Malinda Leon on 01-09-2023 Thin prep Papanicolaou smear with manual screening 13 U/L 15-37 [facility] Thin prep Papanicolaou smear with manual screening 7 5-15 [facility] CNOVon 03-16-2022 CNOV Office Visit (ORMDNA ) CRISSY RAMOS ([id number]) 1955 F Date Time Provider Department 03/16/22 8:00 AM GARY VERGARA During your visit today, we recorded the following information about you: Gary Vergara MD 03/22/2022 7:42 AM Signed SUBJECTIVE: Here for the third and final injection of synvisc into left knee. Patient had no significant discomfort with the 1st or 2nd injections. OBJECTIVE: left knee continues to have mild effusion, positive crepitants and decreased ROM. ASSESSMENT: left knee pain secondary to osteoarthritis PLAN: 1. Injection of 3rd and final dose of synvisc through Betadine cleansed inferolateral insertion site. 2. Follow up 1 months' time for repeat evaluation Large Joint Arthro/Inj: L knee joint Informed Consent Consent Obtained: Verbal [place] Protocol A moment to CARE was completed. SIGN IN Personnel directly involved with the procedure wore the appropriate PPE. Special Equipment: N/A Patient/Surrogate Stated/Verified: Patient name, Date of , Relevant allergies and Intended procedure TIME OUT Intended patient and procedure match the source document(s). Consent documented and matches the intended procedure. Relevant labs, photos, and/or imaging studies have been reviewed. Correct side/site marked and visible. Medications required for procedure verified. No fire risk assessment and interventions applicable. No implant(s) inserted. 03/16/2022 8:04 AM The procedure site was prepped in the usual sterile fashion. Site: L knee joint Medications: 2 mL hylan G-F 20 16 mg/2 mL Outcome: Tolerated well, no immediate complications Post-injection instructions were reviewed with the patient and the patient voiced understanding of these instructions. SIGN OUT No specimen collected. No instruments, equipment or retained foreign bodies applicable. Post-procedure follow-up management communicated and Plan of Care Visit completed when applicable Referring Provider: GARY VERGARA [[id number]] Allergies As of Date: 03/16/2022 (No Known Allergies) Date Reviewed: 03/16/2022 Reviewed by: Eliana Guaman Ct - Fully Assessed Reason for Visit: synvisc #3 [Other] Primary Visit Diagnosis:Primary osteoarthritis of left knee [M17.12] Order(s):Large Joint Arthro/Inj: L knee joint [DQV162] Order #: [id number] [] hylan G-F 20 2 mL injection (SYNVISC)Disp: Rfl: Prescriptions as of 03/22/2022 - TURMERIC ORAL Take by mouth. - cyanocobalamin, vitamin B-12, (VITAMIN B12 ORAL) Take by mouth. - cholecalciferol, vitamin D3, (VITAMIN D3 ORAL) Take by mouth. - docosahexaenoic acid/epa (FISH OIL ORAL) Take by mouth. - HYDROCHLOROTHIAZIDE ORAL Take by mouth. - cephALEXin (KEFLEX) 250 mg capsule Take 1 capsule by mouth once daily. - ibuprofen (MOTRIN) 800 mg tablet Take 1 tablet by mouth every 8 hours as needed for Pain. - losartan (COZAAR) 100 mg tablet Take 100 mg by mouth once daily. - levothyroxine (SYNTHROID) 100 mcg tablet Take 100 mcg by mouth daily before breakfast. - cannabidiol (EPIDIOLEX) 100 mg/mL oral liquid Take 10 mg/kg/dose by mouth twice daily. Problem List As Of Date 03/16/2022 Noted Resolved Essential hypertension [I10] 06/11/2019 Other specified hypothyroidism [E03.8] 06/11/2019 Arthritis of left knee [M17.12] 06/11/2019 Prescriptions ordered this encounter Disp Refills Start End HYLAN G-F 20 16 MG/2 ML INTRA-ARTICU* 03/16/2022 03/16/2022 Route: Inj-ORTHO Encounter Status:Closed by GARY VERGARA on 03/22/22 [facility] CNOVon 03-09-2022 CNOV Office Visit (ORMDNA ) CRISSY RAMOS ([id number]) 1955 F Date Time Provider Department 03/09/22 4:15 PM GARY VERGARA During your visit today, we recorded the following information about you: Gary Vergara MD 03/09/2022 5:13 PM Signed SUBJECTIVE: Here for the second of 3 injections of synvisc into left knee. Patient had no significant discomfort with the 1st injection. OBJECTIVE: left knee continues to have mild effusion, positive crepitants and decreased ROM ASSESSMENT: left knee pain secondary to osteoarthritis PLAN: 1. Injection second dose of synvisc through Betadine cleansed inferolateral insertion site. 2. Follow up 1 weeks time for 3rd and final injection. Large Joint Arthro/Inj: L knee joint Informed Consent Consent Obtained: Verbal [place] Protocol A moment to CARE was completed. SIGN IN Personnel directly involved with the procedure wore the appropriate PPE. Special Equipment: N/A Patient/Surrogate Stated/Verified: Patient name, Date of , Relevant allergies and Intended procedure TIME OUT Intended patient and procedure match the source document(s). Consent documented and matches the intended procedure. Relevant labs, photos, and/or imaging studies have been reviewed. Correct side/site marked and visible. Medications required for procedure verified. No fire risk assessment and interventions applicable. No implant(s) inserted. 03/09/2022 4:29 PM The procedure site was prepped in the usual sterile fashion. Site: L knee joint Medications: 2 mL hylan G-F 20 16 mg/2 mL Outcome: Tolerated well, no immediate complications Post-injection instructions were reviewed with the patient and the patient voiced understanding of these instructions. SIGN OUT No specimen collected. No instruments, equipment or retained foreign bodies applicable. Post-procedure follow-up management communicated and Plan of Care Visit completed when applicable Referring Provider: GARY VERGARA [[id number]] Allergies As of Date: 03/09/2022 (No Known Allergies) Date Reviewed: 03/09/2022 Reviewed by: Eliana Guaman Ct - Fully Assessed Reason for Visit: synvisc #2 [Other] Primary Visit Diagnosis:Primary osteoarthritis of left knee [M17.12] Order(s):Large Joint Arthro/Inj: L knee joint [[id number]] Order #: [id number] [] hylan G-F 20 2 mL injection (SYNVISC)Disp: Rfl: Prescriptions as of 03/09/2022 - TURMERIC ORAL Take by mouth. - cyanocobalamin, vitamin B-12, (VITAMIN B12 ORAL) Take by mouth. - cholecalciferol, vitamin D3, (VITAMIN D3 ORAL) Take by mouth. - docosahexaenoic acid/epa (FISH OIL ORAL) Take by mouth. - HYDROCHLOROTHIAZIDE ORAL Take by mouth. - cephALEXin (KEFLEX) 250 mg capsule Take 1 capsule by mouth once daily. - ibuprofen (MOTRIN) 800 mg tablet Take 1 tablet by mouth every 8 hours as needed for Pain. - losartan (COZAAR) 100 mg tablet Take 100 mg by mouth once daily. - levothyroxine (SYNTHROID) 100 mcg tablet Take 100 mcg by mouth daily before breakfast. - cannabidiol (EPIDIOLEX) 100 mg/mL oral liquid Take 10 mg/kg/dose by mouth twice daily. Problem List As Of Date 03/09/2022 Noted Resolved Essential hypertension [I10] 06/11/2019 Other specified hypothyroidism [E03.8] 06/11/2019 Arthritis of left knee [M17.12] 06/11/2019 Prescriptions ordered this encounter Disp Refills Start End HYLAN G-F 20 16 MG/2 ML INTRA-ARTICU* 03/09/2022 03/09/2022 Route: Inj-ORTHO Encounter Status:Closed by GARY VERGARA on 03/09/22 [facility] CNOVon 03-02-2022 CNOV Office Visit (ORMDNA ) CRISSY RAMOS ([id number]) 1955 F Date Time Provider Department 03/02/22 8:30 AM GARY VERGARA During your visit today, we recorded the following information about you: Gary Vergara MD 03/02/2022 3:14 PM Signed SUBJECTIVE: Here for the first of 3 injections of synvisc into left knee. Patient continues to complain of left knee pain. OBJECTIVE: left knee continues to have mild effusion, positive crepitants and decreased ROM. ASSESSMENT: left knee pain secondary to osteoarthritis PLAN: 1. Injection of 1st dose of synvisc through Betadine cleansed inferolateral insertion site. 2. Follow up 1 weeks time for 2nd of 3 injections. Large Joint Arthro/Inj: L knee joint Informed Consent Consent Obtained: Verbal [place] Protocol A moment to CARE was completed. SIGN IN Personnel directly involved with the procedure wore the appropriate PPE. Special Equipment: N/A Patient/Surrogate Stated/Verified: Patient name, Date of , Relevant allergies and Intended procedure TIME OUT Intended patient and procedure match the source document(s). Consent documented and matches the intended procedure. Relevant labs, photos, and/or imaging studies have been reviewed. Correct side/site marked and visible. Medications required for procedure verified. No fire risk assessment and interventions applicable. No implant(s) inserted. 03/02/2022 8:52 AM The procedure site was prepped in the usual sterile fashion. Site: L knee joint Medications: 2 mL hylan G-F 20 16 mg/2 mL Outcome: Tolerated well, no immediate complications Post-injection instructions were reviewed with the patient and the patient voiced understanding of these instructions. SIGN OUT No specimen collected. No instruments, equipment or retained foreign bodies applicable. Post-procedure follow-up management communicated and Plan of Care Visit completed when applicable Referring Provider: GARY VERGARA [[id number]] Allergies As of Date: 03/02/2022 (No Known Allergies) Date Reviewed: 03/02/2022 Reviewed by: Gary Vergara MD - Fully Assessed Reason for Visit: synvisc #1 [Other] Primary Visit Diagnosis:Primary osteoarthritis of left knee [M17.12] Order(s):Large Joint Arthro/Inj: L knee joint [[id number]] Order #: [id number] [] hylan G-F 20 2 mL injection (SYNVISC)Disp: Rfl: Prescriptions as of 03/02/2022 - TURMERIC ORAL Take by mouth. - cyanocobalamin, vitamin B-12, (VITAMIN B12 ORAL) Take by mouth. - cholecalciferol, vitamin D3, (VITAMIN D3 ORAL) Take by mouth. - docosahexaenoic acid/epa (FISH OIL ORAL) Take by mouth. - HYDROCHLOROTHIAZIDE ORAL Take by mouth. - cephALEXin (KEFLEX) 250 mg capsule Take 1 capsule by mouth once daily. - ibuprofen (MOTRIN) 800 mg tablet Take 1 tablet by mouth every 8 hours as needed for Pain. - losartan (COZAAR) 100 mg tablet Take 100 mg by mouth once daily. - levothyroxine (SYNTHROID) 100 mcg tablet Take 100 mcg by mouth daily before breakfast. - cannabidiol (EPIDIOLEX) 100 mg/mL oral liquid Take 10 mg/kg/dose by mouth twice daily. Problem List As Of Date 03/02/2022 Noted Resolved Essential hypertension [I10] 06/11/2019 Other specified hypothyroidism [E03.8] 06/11/2019 Arthritis of left knee [M17.12] 06/11/2019 Prescriptions ordered this encounter Disp Refills Start End HYLAN G-F 20 16 MG/2 ML INTRA-ARTICU* 03/02/2022 03/02/2022 Route: Inj-ORTHO Encounter Status:Closed by GARY VERGARA on 03/02/22 [facility] CNOVon 02-09-2022 CNOV Office Visit (ORMDNA ) CRISSY RAMOS ([id number]) 1955 F Date Time Provider Department 02/09/22 8:30 AM GARY VERGARA During your visit today, we recorded the following information about you: Gary Vergara MD 02/09/2022 1:06 PM Signed [id number] P Ms. Ramos was last seen forRight hip osteoarthritis and left knee pain secondary osteoarthritis two weeks. had the following plan implemented preoperative consultation for right total hip arthroplasty and a request for viscosupplementation for left knee was placed. She presents today for Synvisc of the Left Knee. She reports that she is going on vacation and wants to discuss timing of the injections. Review of Systems Constitutional: Negative for fever. Respiratory: Negative for cough and shortness of breath. Cardiovascular: Negative for chest pain. History: PAIN EVALUATION 02/09/2022 0833 Pain Level: 5 Pain Location: Knee-Left Description: Aching Duration Amount of Time: ? ongoing Frequency: Continuous Intervention/Comfort measure: Medication;Other: See comment pain rub The patient denies swelling, warmth, discharge, drainage, fevers, chills, sweats. She reports compliance with therapy, sling/splint/ambulator y device/dressing/wound care, and the use of medications. Previous treatments have included viscosupplementation. She reports no change in past medical AND surgical history, medications, allergies, social history, family history and review of systems since last visit, with the exception of the following: None Radiographs: Last XR Knee - Impression Only XR KNEE GENERAL 4V AP BOTH/PA BOTH/LAT/MERC LT Exam End: 10/29/2021 3:07 PM (Final result) Impression: IMPRESSION: Osteoarthrosis of the left knee. Water Filter Cleaner: BARBARA Transcribe Date/Time: Oct 29 2021 3:19P ... Complete Results Physical Examination: Inspection Skin Positive: Valgus alignment. Incision No evidence of surgical incisions. Atrophy No evidence of muscular atrophy. Range of Motion Knee 5-110 degrees Patella Decreased patellar mobility Palpation Effusion 1+ effusion Tenderness lateral joint line Crepitance Positive palpable patellofemoral and lateral compartment crepitance Meniscus Negative medial and lateral Isma's test Stability Positive varus instability, remainder of stability exam is normal Procedure: Large Joint Arthro/Inj: L knee joint Informed Consent Consent Obtained: Verbal [place] Protocol A moment to CARE was completed. SIGN IN Personnel directly involved with the procedure wore the appropriate PPE. Special Equipment: N/A Patient/Surrogate Stated/Verified: Patient name, Date of , Relevant allergies and Intended procedure TIME OUT Intended patient and procedure match the source document(s). Consent documented and matches the intended procedure. Relevant labs, photos, and/or imaging studies have been reviewed. No relevant labs, photos, and/or imaging studies were applicable for review. Correct side/site marked and visible. Medications required for procedure verified. No fire risk assessment and interventions applicable. No implant(s) inserted. 02/09/2022 8:50 AM The procedure site was prepped in the usual sterile fashion. Site: L knee joint Medications: 12 mg betamethasone acetate-betamethasone sodium phosphate 6 mg/mL Anesthetics: 4 mL lidocaine (PF) 10 mg/mL (1 %) Outcome: Tolerated well, no immediate complications Post-injection instructions were reviewed with the patient and the patient voiced understanding of these instructions. SIGN OUT No specimen collected. No instruments, equipment or retained foreign bodies applicable. Post-procedure follow-up management communicated and Plan of Care Visit completed when applicable Assessment: 1. Persistent left knee pain secondary to lateral compartment osteoarthritis. She would not be able to present for her second viscosupplementation injection for 2 weeks I recommended a corticosteroid injection to help with the current inflammation in the knee and then initiate viscosupplementation upon her return from her vacation. Feel this will provide the most consistent dose of the physical supplement. She understands and agrees. Plan: 1. Injection left knee with corticosteroid as noted above 2. Continue independent exercise program 3. Follow-up as scheduled for first of 3 Synvisc injection Referring Provider: GARY VERGARA [[id number]] Allergies As of Date: 02/09/2022 (No Known Allergies) Date Reviewed: 02/09/2022 Reviewed by: Gary Vergara MD - Fully Assessed Reason for Visit: Synvisc [Other] Primary Visit Diagnosis:Primary osteoarthritis of left knee [M17.12] Order(s):Large Joint Arthro/Inj: L knee joint [[id number]] Order #: [id number] [] lidocaine (PF) 10 mg/mL (1 %) 4 mL injection (XYLOC (more content not included)... Normal [facility] Saran 02-08-2022 BUSHRAN Telephone (SALOME) CRISSY RAMOS ([id number]) 1955 F Date Time Provider Department 02/08/22 GARY VERGARA During your visit today, we recorded the following information about you: Sarahantonieta Armendariz [facility] 02/08/2022 9:05 AM Signed Called and left her a message to schedule.. Also sent her a mychart letting her know synvisc one is approved. Thanks! ===View-only below this line=== ----- Message ----- From: Norma Rascon Sent: 02/08/2022 7:34 AM EDT To: [facility] Subject: approval in for injection, can be scheduled Norma Rascon 02/08/2022 9:46 AM Signed Patient returned call, leaving for vacation on 02/10/22. Requested to have injection prior to leaving. She had to wait a period of time for approval. Scheduled patient for tomorrow, 02/09/22. Allergies As of Date: 02/08/2022 (No Known Allergies) Date Reviewed: 02/05/2022 Reviewed by: Gary Vergara MD - Fully Assessed Reason for Visit: Appointment [[id number]] Prescriptions as of 02/08/2022 - TURMERIC ORAL Take by mouth. - cyanocobalamin, vitamin B-12, (VITAMIN B12 ORAL) Take by mouth. - cholecalciferol, vitamin D3, (VITAMIN D3 ORAL) Take by mouth. - docosahexaenoic acid/epa (FISH OIL ORAL) Take by mouth. - HYDROCHLOROTHIAZIDE ORAL Take by mouth. - cephALEXin (KEFLEX) 250 mg capsule Take 1 capsule by mouth once daily. - ibuprofen (MOTRIN) 800 mg tablet Take 1 tablet by mouth every 8 hours as needed for Pain. - losartan (COZAAR) 100 mg tablet Take 100 mg by mouth once daily. - levothyroxine (SYNTHROID) 100 mcg tablet Take 100 mcg by mouth daily before breakfast. - cannabidiol (EPIDIOLEX) 100 mg/mL oral liquid Take 10 mg/kg/dose by mouth twice daily. Problem List As Of Date 02/08/2022 Noted Resolved Essential hypertension [I10] 06/11/2019 Other specified hypothyroidism [E03.8] 06/11/2019 Arthritis of left knee [M17.12] 06/11/2019 Encounter Status:Closed by NORMA RASCON on 02/08/22 Normal [facility] Clinical Summary: Tavo dickerson 02-07-2022 [facility] OP Visit Invalid Interpretation Code [facility] Work Phone: Office Visit: New - 1st visi t with practice, Rm: juan manuel 02-07-2022 NEGATED: Highlighted rowxray history of the Right Hip on 01/26/2022 at [facility] Invalid Interpretation Code [facility] Work Phone: Clinical Summary: Outcome [place] mmaryon 02-01-2022 pain intensity (Oswestry Pain Disability Index) 1 Invalid Interpretation Code [facility] Work Phone: Youth DLA20 [id number] 2 Invalid Interpretation Code [facility] Work Phone: Youth DLA20 [id number] 2 Invalid Interpretation Code [facility] Work Phone: Youth DLA20 [id number] 2 Invalid Interpretation Code [facility] Work Phone: Youth DLA20 [id number] 2 Invalid Interpretation Code [facility] Work Phone: Youth DLA20 [id number] 2 Invalid Interpretation Code [facility] Work Phone: Youth DLA20 [id number] 11 Invalid Interpretation Code [facility] Work Phone: Youth DLA20 [id number] [phone] Invalid Interpretation Code [facility] Work Phone: Youth DLA20 [id number] 1 Invalid Interpretation Code [facility] Work Phone: Youth DLA20 [id number] 0 Invalid Interpretation Code [facility] Work Phone: diagnostic criteria for SLE #1 3 Invalid Interpretation Code [facility] Work Phone: diagnostic criteria for SLE #10 3 Invalid Interpretation Code [facility] Work Phone: diagnostic criteria for SLE #11 12 Invalid Interpretation Code [facility] Work Phone: diagnostic criteria for SLE #12 17 Invalid Interpretation Code [facility] Work Phone: diagnostic criteria for SLE #13 39.8 Invalid Interpretation Code [facility] Work Phone: diagnostic criteria for SLE #14 56.0 Invalid Interpretation Code [facility] Work Phone: diagnostic criteria for SLE #15 [phone] Invalid Interpretation Code [facility] Work Phone: diagnostic criteria for SLE #2 4 Invalid Interpretation Code [facility] Work Phone: diagnostic criteria for SLE #3 4 Invalid Interpretation Code [facility] Work Phone: diagnostic criteria for SLE #4 4 Invalid Interpretation Code [facility] Work Phone: diagnostic criteria for SLE #5 4 Invalid Interpretation Code [facility] Work Phone: diagnostic criteria for SLE #6 4 Invalid Interpretation Code [facility] Work Phone: diagnostic criteria for SLE #7 4 Invalid Interpretation Code [facility] Work Phone: diagnostic criteria for SLE #8 5 Invalid Interpretation Code [facility] Work Phone: diagnostic criteria for SLE #9 4 Invalid Interpretation Code [facility] Work Phone: Clinical Summary: Scanned Hi story Summaryon 02-01-2022 adl form etoh alcohol performance wine Invalid Interpretation Code [facility] Work Phone: Beta HCG ( test) Ql (U) 2 or more times per year Invalid Interpretation Code [facility] Work Phone: brother(s) of patient alive or I do not have any brothers. My brother(s)' health history is unknown. Invalid Interpretation Code [facility] Work Phone: cause of , father Throat Cancer Invalid Interpretation Code [facility] Work Phone: consumes three or more drinks of alcohol (beer, wine, liquor) daily or almost daily less than 1 drink per day Invalid Interpretation Code [facility] Work Phone: Data entered by patient exercise frequency 4 days per week Invalid Interpretation Code [facility] Work Phone: Data entered by patient exercise type strength training, cycling Invalid Interpretation Code [facility] Work Phone: data entered by patient, alcohol (ethanol or ETOH) use Yes Invalid Interpretation Code [facility] Work Phone: Data entered by patient, allergy list I don't have any Drug Allergies I don't have any Environmental Allergies I don't have any Food Allergies Invalid Interpretation Code [facility] Work Phone: data entered by patient, drug (of abuse) use No Invalid Interpretation Code [facility] Work Phone: data entered by patient, Employer Name retired Invalid Interpretation Code [facility] Work Phone: data entered by patient, exercise history Yes Invalid Interpretation Code [facility] Work Phone: data entered by patient, father's medical history Cancer High blood pressure Invalid Interpretation Code [facility] Work Phone: Data entered by patient, history of past surgeries Hysterectomy Invalid Interpretation Code [facility] Work Phone: Data entered by patient, medication list losartan [id number]-once a day levothyroxine [id number]-once a day Invalid Interpretation Code [facility] Work Phone: data entered by patient, mother's medical history Arthritis COPD High blood pressure Invalid Interpretation Code [facility] Work Phone: data entered by patient, past medical history Arthritis High blood pressure Hypothyroidism Invalid Interpretation Code [facility] Work Phone: data entered by patient, social history, current smoker former smoker Invalid Interpretation Code [facility] Work Phone: data entered by patient, social history, former smoker 1986 Invalid Interpretation Code [facility] Work Phone: data entered by patient, social history, marital status Invalid Interpretation Code [facility] Work Phone: Exercise vein comment indoor cycling Invalid Interpretation Code [facility] Work Phone: father of patient is alive or Invalid Interpretation Code [facility] Work Phone: Housing Type: apartment, house, mcfp, trailer, none house Invalid Interpretation Code [facility] Work Phone: housing unit size (asthma environmental history, housing) (from single family to don't know) 2 floors Invalid Interpretation Code [facility] Work Phone: medical history of patient's sister Arthritis Invalid Interpretation Code [facility] Work Phone: mother of patient is alive or Alive Invalid Interpretation Code [facility] Work Phone: Number of dependent children Yes Invalid Interpretation Code [facility] Work Phone: Other housed specified Babysit my grandkids Inva lid Interpretation Code [facility] Work Phone: Peter 01-26-2022 CNOV Office Visit (SALOME ) CRISSY RAMOS ([id number]) 1955 F Date Time Provider Department 01/26/22 9:30 AM GARY VERGARA During your visit today, we recorded the following information about you: Weight Height 82.6 kg 1.702 m Gary Vergara MD 02/05/2022 3:49 PM Signed CONSULT ORTHOPAEDIC: HIP PRIMARY CARE PHYSICIAN: Malinda Leon APRN.ED MANAGER REFERRING PROVIDER: Noble Hopper MD [address] [place] [id number] ASSESSMENT AND PLAN: Impression: Right Hip Severe Degenerative Osteoarthritis, Primary Crissy Ramos has radiograph and physical exam evidence of degenerative joint disease and wishes to pursue surgery. This patient appears to have sufficient symptoms to warrant surgical intervention and is an appropriate candidate for right Primary Total Hip Arthroplasty as evidenced by six months of unsuccessful non-operative treatment as outlined in the HPI below and progressive symptoms. Progressive symptoms include: Pain impacting sleep or causing fatigue Pain worsened by weight bearing Pain effecting living situation Pain limiting ability to stay fit and healthy Unable to ambulate 2 blocks without significant pain and dysfunction. We had a lengthy discussion regarding the risk and benefit of surgery, the alternatives, limitations and personnel involved. These included but were not limited to infection, persistent pain, instability, nerve injury, blood clots, and medical complications. We also discussed the pre-operative course, surgery itself and rehabilitation. Ainsley-operative blood management and transfusion issues were discussed, and options clearly outlined. The patient has consented to the use of the banked allogenic blood if medically necessary. The patient has elected to schedule surgery at this time or intends to call the office with a surgical date. Shared decision making occurred while obtaining informed consent. The patient will be scheduled for a pre-operative education class at which time they will have their nasal swab completed and will be given CHG cloths along with the verbal and written instructions for their use. Patient has been instructed and has been scheduled or will call to schedule attendence in one of the total joint perioperative classes offered prior to proceeding with JOAQUIN.. The patient has been ordered: No orders placed today. CONSULTS: IMPACT/PACE Consult for preoperative clearance. ACTIVE PROBLEM LIST Essential Hypertension Other Specified Hypothyroidism Arthritis of Left Knee SUBJECTIVE CHIEF COMPLAINT: Hip Pain HPI: Crissy Ramos is a 66 year old patient here for evaluation and management of Right hip pain.Crissy Ramos has had progressive problems with the hip(s) constantly over the past several year(s) interfering with activities which include walking 2 blocks, doing housekeeping/laundry, participating in family activities, enjoying hobbies, exercise, rising from a sitting position, standing for prolonged periods of time and getting in and out of a car. The problem began limiting activities 7-12 months ago. Currently the pain in the joint is rated at 6 out of 10 with minimal activity. The pain is chronic and constant and is located in the right groin. The pain is described as stabbing. Relieving factors include no relieving factors. There is no specific incident that brought about this pain. Crissy Ramos also complains of left knee pain that is worse with activity. Has had corticosteroid injections in the past with temporary relief of her pain.. FUNCTIONAL STATUS: Walk indoors, such as around the house (1.75 METs) Do light work around the house, such as dusting or washing dishes (2.70 METs) Take care of self, that is eating, dressing, bathing, using the toilet (2.75 METs) Total Joint Athroplasty - Risk Calculator PREVIOUS TREATMENTS: Medical: OTC NSAIDS for 3 Months or Greater (Aleve), Steroid Injections Right Hip Physical Therapy: Activities Modified and PT Three Months or Greater 1-2 times per week REVIEW OF SYSTEMS: PAIN ASSESSMENT: See HPI. MUSCULOSKELETAL: See HPI. Risk Factors for Total Joint Arthroplasty (TJA) Obesity normal High: BMI > 40 Moderate: BMI 30-40 Normal: BMI < 30 Diabetes normal High: A1C > 8 Moderate: A1C 7-8 Normal: A1C < 7 Smoking normal High: Current smoker Normal: Non smoker Anemia normal High: Hgb < 11.5 (women) N/A: Hgb >= 11.5 (women) Nutritional Status normal High: Alb<3.4, or prealb<15, or serum transferrin<200, or total lymphocyte count<1500 Normal: normal labs COPD normal High: dx of COPD Normal: no dx of COPD MRSA normal High: dx of MRSA or positive lab test Normal: no MRSA CKD normal High: eGFR<60 Moderate: eGFR 60-89 Normal: eGFR>90 Hx of DVT / PE normal High: dx of DVT / PE Normal: no dx of DVT / PE Narcotics Use normal High:NarxCare >=300 Moderate: 100-299 Normal (more content not included)... Normal [facility] XR HIP 2V AP/LAT RTon 2021 XR HIP 2V AP/LAT RT * * *Final Report* * * DATE OF EXAM: Jan 26 2022 9:10AM HARMONY 5280 - XR HIP 2V AP/LAT RT / PROCEDURE REASON: M25.551-Pain in right hip * * * * Physician Interpretation * * * * Pelvis and right hip radiographs HISTORY: 66 years old Clinical information: Pain in right hip RIGHT HIP PAIN TECHNIQUE: Images: XR HIP 2V AP/LAT RT Comparison: 08/18/2021. RESULT: Findings: Narrowing of superior right hip joint space. Osteophyte formation involving the right femoral head and acetabulum. Superior left hip joint space is maintained. Osteophyte formation of the left femoral head and acetabulum. No fracture or dislocation of hips. Remainder of the imaged bony pelvis appears to be intact. Pubic symphysis and SI joints are intact. IMPRESSION: Stable osteoarthrosis of the hips. Water Filter Cleaner: PSCKenna Transcribe Date/Time: Jan 26 2022 10:22A Dictated by : MOISÉS NUNEZ MD This examination was interpreted and the report reviewed and electronically signed by: MOISÉS NUNEZ MD on Jan 26 2022 10:23AM EST [id number] Normal [facility] NURSING PROGon 12-14-2021 NURSING PROG HNO ID: [id number] Author: Dimple (Rn)(Hist) MEDHAT Pradhan Service: Radiology Author Type: Registered Nurse Type: Nursing Progress Note Filed: 12/14/2021 2:35 PM Note Text: Nursing Progress Note Patient Name: Crissy Ramos Patient Location: Room/bed info not found __ Patient had near syncopal episode after hip injection. Patient moved to a cart to rest. Patient answering questions appropriately. Vital signs stable. Dr Logan aware. Pt denies dizziness at this time. Pt ambulated to bathroom without difficulty. Ok per Dr Logan for patient to be discharged when feeling better. This note was completed by: Dimple Pradhan RN [facility] XR ASP/INJ HIP JT/BURSA RTon 12-14-2021 XR ASP/INJ HIP JT/BURSA RT * * *Final Report* * * DATE OF EXAM: Dec 14 2021 2:42PM MDX 5745 - XR ASP/INJ HIP JT/BURSA RT / PROCEDURE REASON: M16.11-Primary osteoarthritis of right hip * * * * Physician Interpretation * * * * HISTORY: Right hip pain. FLUOROSCOPIC GUIDED RIGHT HIP JOINT INJECTION 12/14/2021 2:42 PM. TECHNIQUE: Fluoroscopic Radiation Summary: Plane A, Air Kerma: 16.0 mGy Dose Area Product (DAP): Fluoro time: 0:37 min:sec RESULT: CONSENT: The procedure was explained to the patient including benefits and possible complications. The patient's questions were answered. The patient then signed informed written consent prior to the study. An audible time out was performed to confirm the patient's identification and nature of the procedure. The area was prepped and draped in the usual sterile fashion. Local aesthesia was obtained with 1% Lidocaine. Under fluoroscopic guidance, needle location was confirmed and a 22-gauge spinal needle was placed into the right hip joint. Approximately 1-2 cc of Omnipaque was injected for confirmation of intra-articular position. 2 cc of 40 mg/mL Kenalog diluted in 3 cc of preservative-free 1% lidocaine was then injected into the joint space. The patient tolerated the procedure well. She began to not feel well and lied down. IMPRESSION: Right hip steroid injection.. Water Filter Cleaner: PSCB Transcribe Date/Time: Dec 14 2021 2:58P Dictated by : RICARDO LOGAN MD This examination was interpreted and the report reviewed and electronically signed by: RICARDO LOGAN MD on Dec 14 2021 3:02PM EST [id number] [facility] CNOVon 10-29-2021 CNOV Office Visit (ORMDNA ) CRISSY RAMOS ([id number]) 1955 F Date Time Provider Department 10/29/21 2:30 PM NOBLE HOPPER During your visit today, we recorded the following information about you: Noble Hopper PA-C 10/29/2021 3:50 PM Signed CONSULT ORTHOPAEDIC: HIP PRIMARY CARE PHYSICIAN: Malinda Leon APRN.ED MANAGER REFERRING PROVIDER: Kenna Kam DC [address] [facility] [address] Large Joint Arthro/Inj: L knee joint Informed Consent Consent Obtained: Verbal [place] Protocol A moment to CARE was completed. SIGN IN Personnel directly involved with the procedure wore the appropriate PPE. Special Equipment: N/A Patient/Surrogate Stated/Verified: Patient name, Date of , Relevant allergies and Intended procedure TIME OUT Intended patient and procedure match the source document(s). Consent documented and matches the intended procedure. Relevant labs, photos, and/or imaging studies have been reviewed. Correct side/site marked and visible. Medications required for procedure verified. No fire risk assessment and interventions applicable. No implant(s) inserted. 10/29/2021 3:49 PM The procedure site was prepped in the usual sterile fashion. Site: L knee joint Medications: 12 mg betamethasone acetate-betamethasone sodium phosphate 6 mg/mL Anesthetics: 3 mL lidocaine (PF) 10 mg/mL (1 %) Outcome: Tolerated well, no immediate complications Post-injection instructions were reviewed with the patient and the patient voiced understanding of these instructions. SIGN OUT No specimen collected. No instruments, equipment or retained foreign bodies applicable. Post-procedure follow-up management communicated and Plan of Care Visit completed when applicable Noble Hopper PA-C ASSESSMENT AND PLAN: Impression: Right Hip Moderate Degenerative Osteoarthritis, Primary Left knee severe degenerative osteoarthritis, primary Crissy Ramos has radiograph and physical exam evidence of degenerative joint disease and wishes to consider options before making a decision for surgery. This patient appears to have sufficient symptoms to warrant surgical intervention and is an appropriate candidate for left total knee. The patient has been ordered: Hip Injection ,right Knee injection, left CONSULTS: Patient does not require consults for optimization at this time. ACTIVE PROBLEM LIST Essential Hypertension Other Specified Hypothyroidism Arthritis of Left Knee SUBJECTIVE CHIEF COMPLAINT: Right hip pain and left knee pain HPI: Crissy Ramos is a 66 year old patient here for evaluation and management of Right hip and left knee pain. Crissy Ramos has had progressive problems with the joints (s) most of the day over the past 5 year(s) interfering with activities which include doing housekeeping/laundry, enjoying hobbies, exercise, dressing and climbing stairs. The problem began limiting activities 3+ years ago. Currently the pain in the joint is rated at 6 out of 10 with moderate activity. The pain is constant and is located in the right groin and outer aspect of the hip and left outside of the knee. The pain is described as penetrating, severe and sharp. Relieving factors include rest and over the counter medication. There is no specific incident that brought about this pain. Crissy Ramos has no additional complaints. FUNCTIONAL STATUS: Climb a flight of stairs or walk up a hill (5.50 METs) Total Joint Arthroplasty: Risk Calculator Crissy Ramos has a 6.17% chance of NOT returning home at discharge for a Primary total Hip replacement. Crissy's estimated Length of Stay is 1 day. Crissy's 30 day chance of readmission is 1.03%. Readmission Probability 1.03 % (within 30 days following surgery) Estimated LOS 1 day Discharge Disposition Probability D/C to Home 93.83 % D/C to SNF 6.17 % These calculations are based on the following factors: - 66 years of age - sex is not male - BMI of 29 kg/m2 - NarxCare score of 0 - 0 hospitalizations in the last 12 months - no history of heart disease - no history of diabetes - no history of COPD - no history of anemia - preoperative ambulation: independent community distances - 1 step(s) to enter home - bed location is NOT on the first floor - bath location is NOT on the first floor - caregiver is consistent - home is not more than 150 miles away - PROMIS-10 Mental Health T score not available - Marital status: PREVIOUS TREATMENTS: Medical: OTC NSAIDS for 3 Months or Greater (Aleve), cortisone and visco injection left knee with good relief Physical Therapy: PT Three Months or Greater 1-2 times per week and working with chiropractor REVIEW OF SYSTEMS: PAIN ASSESSMENT: See HPI. MUSCULOSKELETAL: See HPI. Risk Factors for Total Joint Arthroplasty (TJA) Obesity Unknown Risk High: BMI > 40 Moderat (more content not included)... Normal [facility] XR KNEE 4V AP/PA BOTH+LAT/ME R LTon 10-29-2021 XR KNEE 4V AP/PA BOTH+LAT/ALFREDITO LT * * *Final Report* * * DATE OF EXAM: Oct 29 2021 3:07PM HARMONY 5202 - XR KNEE 4V AP/PA BOTH+LAT/ALFREDITO LT / PROCEDURE REASON: M25.562-Left knee pain, unspecified chronicity * * * * Physician Interpretation * * * * Left knee radiographs HISTORY: 66 years old Clinical information: Left knee pain, unspecified chronicity LEFT KNEE PAIN TECHNIQUE: Images: XR KNEE 4V AP/PA BOTH+LAT/ALFREDITO LT Comparison: None. RESULT: Findings: Narrowing of the lateral compartment joint space and [id number] lateral femoral condyle and tibial plateau. Marginal osteophytes thinning of the tibial plateaus, femoral condyles, and posterior aspect of the patella. Patellar stefanie. No joint effusion. No soft tissue abnormality identified. IMPRESSION: Osteoarthrosis of the left knee. Water Filter Cleaner: [facility]ORENCE[facility]enna Transcribe Date/Time: Oct 29 2021 3:19P Dictated by : MOISÉS NUNEZ MD This examination was interpreted and the report reviewed and electronically signed by: MOISÉS NUNEZ MD on Oct 29 2021 3:20PM EST [id number] [facility] No Panel Informationon 08-18 [facility] XR HIP 3V PELV+ AP/LAT RTon 08-18-2021 XR HIP 3V PELV+ AP/LAT RT * * *Final Report* * * DATE OF EXAM: Aug 18 2021 11:02AM LDX 5352 - XR HIP 3V PELV+ AP/LAT RT / PROCEDURE REASON: M25.551 Rt. Hip pain * * * * Physician Interpretation * * * * EXAMINATION: XR HIP 3V PELV+ AP/LAT RT CLINICAL HISTORY: pt. states RT. hip pain x last few years Technique: XR HIP 3V PELV+ AP/LAT RT -- RIGHT with 2 views on 3 images Comparison: None RESULT: No fracture or dislocation. Severe right hip degenerative changes with superolateral narrowing, extensive subchondral sclerosis and prominent marginal osteophytes. SI joints and pubic symphysis are intact. Degenerative changes in the lower lumbar spine. IMPRESSION: Severe right hip osteoarthritis. No acute osseous findings. Water Filter Cleaner: PSCB Transcribe Date/Time: Aug 18 2021 1:22P Dictated by : GIORGIO WILEY MD This examination was interpreted and the report reviewed and electronically signed by: GIORGIO WILEY MD on Aug 18 2021 2:05PM EST [id number] Normal [facility] No Panel Information [facility] Vital Signs Date Time Vital Sign Value Performing Clinician Facility 03-20-2025 17:51-0400 Body height 167.64 cm Malinda Leon WEBSITE DEVELOPER-C Work Phone: [facility] 03-20-2025 17:51-0400 Body mass index (BMI) [Ratio] 29 kg/m2 Malinda Leon WEBSITE DEVELOPER-C Work Phone: [facility] 03-20-2025 17:51-0400 Body temperature 97.3 [degF] Malinda Leon WEBSITE DEVELOPER-C Work Phone: [facility] 03-20-2025 17:51-0400 Body weight 81.64 kg Malinda Leon WEBSITE DEVELOPER-C Work Phone: [facility] 03-20-2025 17:51-0400 Diastolic blood pressure 84 mm[Hg] Malinda Leon WEBSITE DEVELOPER-C Work Phone: [facility] 03-20-2025 17:51-0400 Heart rate 88 /min Malinda Leon WEBSITE DEVELOPER-C Work Phone: [facility] 03-20-2025 17:51-0400 Respiratory rate 18 /min Malinda Leon WEBSITE DEVELOPER-C Work Phone: [facility] 03-20-2025 17:51-0400 SaO2% (BldA) [Mass fraction] 98 % Malinda MORGANC Work Phone: [facility] 03-20-2025 17:51-0400 Systolic blood pressure 140 mm[Hg] Malinda Leon WEBSITE DEVELOPER-C Work Phone: [facility] 01-15-2024 17:37-0500 Body height 167.64 cm [facility] 01-15-2024 17:37-0500 Body mass index (BMI) [Ratio] 29.9 kg/m2 [facility] 01-15-2024 17:37-0500 Body temperature 97.5 [degF] [facility] 01-15-2024 17:37-0500 Body weight 84.36 kg [facility] 01-15-2024 17:37-0500 Diastolic blood pressure 80 mm[Hg] [facility] 01-15-2024 17:37-0500 Heart rate 74 /min [facility] 01-15-2024 17:37-0500 Respiratory rate 18 /min [facility] 01-15-2024 17:37-0500 SaO2% (BldA) [Mass fraction] 96 % [facility] 01-15-2024 17:37-0500 Systolic blood pressure 130 mm[Hg] [facility] 02-24-2023 15:05-0400 Body height 167.64 cm [facility] 02-24-2023 15:05-0400 Body mass index (BMI) [Ratio] 29.7 kg/m2 [facility] 02-24-2023 15:05-0400 Body temperature 97.9 [degF] [facility] 02-24-2023 15:05-0400 Body weight 83.46 kg [facility] 02-24-2023 15:05-0400 Diastolic blood pressure 80 mm[Hg] [facility] 02-24-2023 15:05-0400 Heart rate 77 /min [facility] 02-24-2023 15:05-0400 Respiratory rate 18 /min [facility] 02-24-2023 15:05-0400 SaO2% (BldA) [Mass fraction] 96 % [facility] 02-24-2023 15:05-0400 Systolic blood pressure 140 mm[Hg] [facility] 01-09-2023 19:48-0500 Body height 167.64 cm [facility] 01-09-2023 19:48-0500 Body mass index (BMI) [Ratio] 30.2 kg/m2 [facility] 01-09-2023 19:48-0500 Body temperature 97.3 [degF] [facility] 01-09-2023 19:48-0500 Body weight 84.82 kg [facility] 01-09-2023 19:48-0500 Diastolic blood pressure 80 mm[Hg] [facility] 01-09-2023 19:48-0500 Heart rate 74 /min [facility] 01-09-2023 19:48-0500 Respiratory rate 18 /min [facility] 01-09-2023 19:48-0500 SaO2% (BldA) [Mass fraction] 94 % [facility] 01-09-2023 19:48-0500 Systolic blood pressure 140 mm[Hg] [facility] NEGATED: Highlighted [id number] 10:50-0400 Body height 170.18 cm [facility] Work Phone: NEGATED: Highlighted [id number] 10:50-0400 Body height 170 cm [facility] Work Phone: NEGATED: Highlighted [id number] 10:50-0400 Body mass index (BMI) [Ratio] 29.24 kg/m2 Winter [facility] Work Phone: NEGATED: Highlighted [id number] 10:50-0400 Body weight 84.37 kg Winter Miller [facility] Work Phone: NEGATED: Highlighted [id number] 10:50-0400 Body weight 85 kg Winter Miller [facility] Work Phone: Encounters Encounter Date Encounter Type Care Provider Facility Start: 03-20-2025 End: 03-20-2025 ambulatory Malinda Leon WEBSITE DEVELOPER-C Work Phone: [facility] Work Phone: Start: 03-20-2025 End: 03-20-2025 Patient encounter procedure Malinda Leon WEBSITE DEVELOPER-C -Laboratory, Specimen Work Phone: Start: 03-20-2025 End: 03-20-2025 ambulatory Malinda Leon WEBSITE DEVELOPER Facility:[facility] Start: 10-01-2024 End: 10-01-2024 ambulatory Malinda Leon WEBSITE DEVELOPER Facility:[facility] Start: 01-15-2024 End: 01-15-2024 ambulatory [facility] Work Phone: Start: 01-15-2024 End: 01-15-2024 Patient encounter procedure [facility]-Laboratory, Specimen Work Phone: Start: 02-24-2023 End: 02-24-2023 ambulatory [facility] Work Phone: Start: 02-24-2023 End: 02-24-2023 Patient encounter procedure [facility]-Laboratory, Specimen Start: 01-09-2023 End: 01-09-2023 ambulatory [facility] Work Phone: Start: 01-09-2023 End: 01-09-2023 Patient encounter procedure [facility]-Laboratory, Specimen Start: 03-16-2022 End: 03-16-2022 Patient encounter procedure Gary Vergara MD Work Phone: Orthopaedics Comment on above: Primary osteoarthrit is of left knee (Primary Dx) Start: 03-02-2022 End: 03-02-2022 Patient encounter procedure Gary Vergara MD Work Phone: Orthopaedics Comment on above: Primary osteoarthrit is of left knee (Primary Dx) Start: 02-07-2022 End: 02-07-2022 Pt evaluation Azar Munoz MD Work Phone: [facility] Work Phone: Start: 09-29-2021 Orders Only Gary marks MD Work Phone: Orthopaedics Comment on above: Left knee pain, unsp ecified chronicity (Primary Dx) Start: 08-30-2021 End: 08-30-2021 Orders Only Gary Vergara MD Work Phone: Appointment Center Comment on above: Pain (Primary Dx) Start: 08-18-2021 End: 08-18-2021 Subsequent hospital visit by physician Xr [facility] Comment on above: Pain in right hip [M 25.551] Procedures Date Procedure Procedure Detail Performing Clinician Start: 03-16-2022 Arthrocentesis aspir &/inj major jt/bursa w/o us Gary Vergara MD Work Phone: Start: 03-02-2022 Arthrocentesis aspir &/inj major jt/bursa w/o us Gary Vergara MD Work Phone: Start: 02-07-2022 End: 02-07-2022 BP scrn no perf at interval Azar Munoz MD Work Phone: Start: 02-07-2022 End: 02-07-2022 Calc BMI out nrm kalpana nof/u Azar Munoz MD Work Phone: Start: 02-07-2022 End: 02-07-2022 Current tobacco non-user cad cap copd pv dm Azar Munoz MD Work Phone: Start: 02-07-2022 End: 02-07-2022 Docrev cur meds by elig clin Azar Munoz MD Work Phone: Start: 02-07-2022 End: 02-07-2022 Osteoarthritis symptoms&funcjal status asses Azar Munoz MD Work Phone: Start: 02-07-2022 End: 02-07-2022 Pain doc pos and plan Azar Munoz MD Work Phone: Start: 02-07-2022 End: 02-07-2022 Patient encounter procedure Azar Munoz MD Work Phone: Start: 02-07-2022 End: 02-07-2022 POLAR CARE KODIAK COMBO - HIP (BREG) Azar Munoz MD Work Phone: Start: 02-07-2022 End: 02-07-2022 Radiologic examination pelvis 1/2 views Azar Munoz MD Work Phone: Start: 02-07-2022 End: 02-07-2022 Walker folding wheeled w/o s Azar Munoz MD Work Phone: Start: 08-18-2021 Radex hip unilateral with pelvis 2-3 views Malinda Leon APRN.ED MANAGER Work Phone: Urine culture NEGATED: Highlighted rowStart: 02-07-2022 End: 02-07-2022 Documentation of current medications [facility] Miller LPN Plan of Treatment Date Care Activity Detail Author Start: 07-21-2022 Influenza vaccination INFLUENZ A (Season Ended) [facility] Start: 06-11-2022 DIABETES SCREEN DIABETES SCREEN [facility] Start: 03-02-2022 End: 03-02-2022 Patient encounter procedure Appointment [facility] Work Phone: Start: 02-07-2022 End: 02-07-2022 Patient encounter procedure Appointment [facility] Work Phone: Start: 02-07-2022 End: 02-07-2022 Ct lower extremity w/o contrast material CT right hip without contrast [facility] Work Phone: Start: 11-20-2021 ADVANCE DIRECTIVE DISCUSSION ADVANCE DIRECTIVE DISCUSSION [facility] Start: 07-21-2021 Influenza vaccination INFLUENZA (#1) [facility] Start: 2018 ADVANCE DIRECTIVE DISCUSSION ADVANCE DIRECTIVE DISCUSSION [facility] Start: 2018 BONE DENSITY BONE DENSITY [facility] Start: 2018 PNEUMOVAX AGE 65 AND OVER WITH 5YR LOOKBACK (#1) PNEUMOVAX AGE 65 AND OVER WITH 5YR LOOKBACK (#1) [facility] Start: 02-26-2016 LIPID SCREEN LIPID SCREEN [facility] Start: 2003 SHINGRIX VACCINE (1 of 2) SHINGRIX VACCINE (1 of 2) [facility] Start: 1998 COLOGUARD (FIT-DNA) COLOGUARD (FIT-D NA) [facility] Start: 1998 Colonoscopy COLONOSCOPY [facility] Start: 1998 COLORECTAL CANCER SCREENING COLORECTAL CANCER SCREENING [facility] Start: [address] COLONOGRAPHY [facility] Start: 1998 FECAL OCCULT BLOOD FECAL OCCULT BLOO D [facility] Start: 1998 Screening for malign ant neoplasm of colon COLORECTAL CANCER SCREENING [facility] Start: 1998 SIGMOIDOSCOPY SIGMOIDOSCOPY [facility] Start: 1993 Mammography MAMMOGRAM [facility] Start: 1972 Urine microalbumin profile DTAP,TDAP,TD (1 - Tdap) [facility] Start: 1971 ANNUAL 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 TEAM 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 CODEY DISEASE VISIT ANNUAL PCP TEAM CHRONIC DISEASE VISIT [facility] Start: 1971 BP CONTROLLED (<130/80) BP CONTROLLE D (<130/80) [facility] Start: 1971 HEPATITIS C SCREENING HEPATITIS C SC LOU [facility] Start: 1965 Adult depression screening assessment DEPRESSION SCREENING [facility] Start: 1965 COVID-19 VACCINE (1) [facility] Start: 1958 COVID-19 VACCINE (1) COVID-19 VACCIN E (1) [facility] End: 09-29-2022 Radiologic exam knee complete 4/more views XR KNEE GENERAL 4V AP BOTH/PA BOTH/LAT/MERC LT Radiology Routine Pain 1 Occurrences starting 08/30/2021 until 09/29/2022 [facility] Comment on above: 1 Occurrences starti ng 08/30/2021 until 09/29/2022 End: 10-29-2022 Radiologic exam knee complete 4/more views XR KNEE GENERAL 4V AP BOTH/PA BOTH/LAT/MERC LT Radiology Routine Left knee pain, unspecified chronicity 1 Occurrences starting 09/29/2021 until 10/29/2022 [facility] Work Phone: Comment on above: 1 Occurrences starti ng 09/29/2021 until 10/29/2022 [facility] Payers Date Payer Category Payer Private Health Insurance 101 [id number] 2024 Self-pay [id number] 2020 Medicare [id number] Unknown [id number] Unknown [id number] Social History Date Type Detail Facility Start: 06-11-2019 End: 06-21-2019 Tobacco smoking status NHIS Former smoker [facility] End: 11-20-1985 History of tobacco use Current smoker [facility] End: 11-20-1985 History of tobacco use Cigarette Smoker [facility] Start: 06-11-2019 End: 06-21-2019 Cigarettes smoked current (pack per day) - Reported [facility] Start: 06-11-2019 End: 06-21-2019 Tobacco use and exposure Never used [facility] Start: 06-21-2019 End: 01-26-2022 Alcohol intake Current drinker of alcohol (finding) [facility] Start: 1955 Sex Assigned At Not on file C [facility] Start: 01-29-2022 End: 02-08-2022 Exposure to SARS-CoV-2 (event) Not sure [facility] Start: 02-07-2022 End: 02-07-2022 Assertion Unknown if ever smoked [facility] Work Phone: Start: 1955 Sex Assigned At Female C [facility] Medical Equipment Procedure Code Equipment Code Equipment Origin al Text Equipment Identifier Dates Vandana Sauceda [id number] Start: 06-20-2019 Clinical Notes 10-29-2021 to 03-20-2025 Note Date & Type Note Facility 03-20-2025 Evaluation note Diagnosis Onset Date Resolution Bronchitis acute March 20, 2025 5:43pm Hypothyroidism (acquired) acute March 20, 2025 5: 43pm Maxillary sinusitis, acute acute March 20, 2025 5: 43pm Hypertension chronic March 20 5:43pm [facility] Work Phone: [phone]) 804-921804-27-2022 NoteHNO ID: [id number] Author: Gary Vergara MD Service: ? Author Type: Physician Type: Progress Notes Filed: 03/22/2022 7:42 AM Note Text: SUBJECTIVE: Here for the third and final injection of synvisc into left knee. Patient had no significant discomfort with the 1st or 2nd injections. OBJECTIVE: left knee continues to have mild effusion, positive crepitants and decreased ROM. ASSESSMENT: left knee pain secondary to osteoarthritis PLAN: 1. Injection of 3rd and final dose of synvisc through Betadine cleansed inferolateral insertion site. 2. Follow up 1 months' time for repeat evaluation Large Joint Arthro/Inj: L knee joint Informed Consent Consent Obtained: Verbal [place] Protocol A moment to CARE was completed. SIGN IN Personnel directly involved with the procedure wore the appropriate PPE. Special Equipment: N/A Patient/Surrogate Stated/Verified: Patient name, Date of , Relevant allergies and Intended procedure TIME OUT Intended patient and procedure match the source document(s). Consent documented and matches the intended procedure. Relevant labs, photos, and/or imaging studies have been reviewed. Correct side/site marked and visible. Medications required for procedure verified. No fire risk assessment and interventions applicable. No implant(s) inserted. 03/16/2022 8:04 AM The procedure site was prepped in the usual sterile fashion. Site: L knee joint Medications: 2 mL hylan G-F 20 16 mg/2 mL Outcome: Tolerated well, no immediate complications Post-injection instructions were reviewed with the patient and the patient voiced understanding of these instructions. SIGN OUT No specimen collected. No instruments, equipment or retained foreign bodies applicable. Post-procedure follow-up management communicated and Plan of Care [facility] History of Present illness Narrative* Gary Vergara MD - 03/16/2022 8:03 AM EDT Associated Order(s): Large Joint Arthro/Inj: L knee joint Post-Procedure Diagnose(s): Primary osteoarthritis of left knee SUBJECTIVE: Here for the third and final injection of synvisc into left knee. Patient had no significant discomfort with the 1st or 2nd injections. OBJECTIVE: left knee continues to have mild effusion, positive crepitants and decreased ROM. ASSESSMENT: left knee pain secondary to osteoarthritis PLAN: 1. Injection of 3rd and final dose of synvisc through Betadine cleansed inferolateral insertion site. 2. Follow up 1 months' time for repeat evaluation Large Joint Arthro/Inj: L knee joint Informed Consent Consent Obtained: Verbal [place] Protocol A moment to CARE was completed. SIGN IN Personnel directly involved with the procedure wore the appropriate PPE. Special Equipment: N/A Patient/Surrogate Stated/Verified: Patient name, Date of , Relevant allergies and Intended procedure TIME OUT Intended patient and procedure match the source document(s). Consent documented and matches the intended procedure. Relevant labs, photos, and/or imaging studies have been reviewed. Correct side/site marked and visible. Medications required for procedure verified. No fire risk assessment and interventions applicable. No implant(s) inserted. 03/16/2022 8:04 AM The procedure site was prepped in the usual sterile fashion. Site: L knee joint Medications: 2 mL hylan G-F 20 16 mg/2 mL Outcome: Tolerated well, no immediate complications Post-injection instructions were reviewed with the patient and the patient voiced understanding of these instructions. SIGN OUT No specimen collected. No instruments, equipment or retained foreign bodies applicable. Post-procedure follow-up management communicated and Plan of Care Visit completed when applicable documented in [facility] encounter[facility] [place] NoteHNO ID: [id number] Author: Gary Vergara MD Service: ? Author Type: Physician Type: Progress Notes Filed: 03/09/2022 5:13 PM Note Text: SUBJECTIVE: Here for the second of 3 injections of synvisc into left knee. Patient had no significant discomfort with the 1st injection. OBJECTIVE: left knee continues to have mild effusion, positive crepitants and decreased ROM ASSESSMENT: left knee pain secondary to osteoarthritis PLAN: 1. Injection second dose of synvisc through Betadine cleansed inferolateral insertion site. 2. Follow up 1 weeks time for 3rd and final injection. Large Joint Arthro/Inj: L knee joint Informed Consent Consent Obtained: Verbal [place] Protocol A moment to CARE was completed. SIGN IN Personnel directly involved with the procedure wore the appropriate PPE. Special Equipment: N/A Patient/Surrogate Stated/Verified: Patient name, Date of , Relevant allergies and Intended procedure TIME OUT Intended patient and procedure match the source document(s). Consent documented and matches the intended procedure. Relevant labs, photos, and/or imaging studies have been reviewed. Correct side/site marked and visible. Medications required for procedure verified. No fire risk assessment and interventions applicable. No implant(s) inserted. 03/09/2022 4:29 PM The procedure site was prepped in the usual sterile fashion. Site: L knee joint Medications: 2 mL hylan G-F 20 16 mg/2 mL Outcome: Tolerated well, no immediate complications Post-injection instructions were reviewed with the patient and the patient voiced understanding of these instructions. SIGN OUT No specimen collected. No instruments, equipment or retained foreign bodies applicable. Post-procedure follow-up management communicated and Plan of Care Visit [facility] NoteHNO ID: [id number] Author: Gary Vergara MD Service: ? Author Type: Physician Type: Progress Notes Filed: 03/02/2022 3:14 PM Note Text: SUBJECTIVE: Here for the first of 3 injections of synvisc into left knee. Patient continues to complain of left knee pain. OBJECTIVE: left knee continues to have mild effusion, positive crepitants and decreased ROM. ASSESSMENT: left knee pain secondary to osteoarthritis PLAN: 1. Injection of 1st dose of synvisc through Betadine cleansed inferolateral insertion site. 2. Follow up 1 weeks time for 2nd of 3 injections. Large Joint Arthro/Inj: L knee joint Informed Consent Consent Obtained: Verbal [place] Protocol A moment to CARE was completed. SIGN IN Personnel directly involved with the procedure wore the appropriate PPE. Special Equipment: N/A Patient/Surrogate Stated/Verified: Patient name, Date of , Relevant allergies and Intended procedure TIME OUT Intended patient and procedure match the source document(s). Consent documented and matches the intended procedure. Relevant labs, photos, and/or imaging studies have been reviewed. Correct side/site marked and visible. Medications required for procedure verified. No fire risk assessment and interventions applicable. No implant(s) inserted. 03/02/2022 8:52 AM The procedure site was prepped in the usual sterile fashion. Site: L knee joint Medications: 2 mL hylan G-F 20 16 mg/2 mL Outcome: Tolerated well, no immediate complications Post-injection instructions were reviewed with the patient and the patient voiced understanding of these instructions. SIGN OUT No specimen collected. No instruments, equipment or retained foreign bodies applicable. Post-procedure follow-up management communicated and Plan of Care Visit [facility] History of Present illness Narrative* Gary Vergara MD - 03/02/2022 8:51 AM EDT Associated Order(s): Large Joint Arthro/Inj: L knee joint Post-Procedure Diagnose(s): Primary osteoarthritis of left knee SUBJECTIVE: Here for the first of 3 injections of synvisc into left knee. Patient continues to complain of left knee pain. OBJECTIVE: left knee continues to have mild effusion, positive crepitants and decreased ROM. ASSESSMENT: left knee pain secondary to osteoarthritis PLAN: 1. Injection of 1st dose of synvisc through Betadine cleansed inferolateral insertion site. 2. Follow up 1 weeks time for 2nd of 3 injections. Large Joint Arthro/Inj: L knee joint Informed Consent Consent Obtained: Verbal [place] Protocol A moment to CARE was completed. SIGN IN Personnel directly involved with the procedure wore the appropriate PPE. Special Equipment: N/A Patient/Surrogate Stated/Verified: Patient name, Date of , Relevant allergies and Intended procedure TIME OUT Intended patient and procedure match the source document(s). Consent documented and matches the intended procedure. Relevant labs, photos, and/or imaging studies have been reviewed. Correct side/site marked and visible. Medications required for procedure verified. No fire risk assessment and interventions applicable. No implant(s) inserted. 03/02/2022 8:52 AM The procedure site was prepped in the usual sterile fashion. Site: L knee joint Medications: 2 mL hylan G-F 20 16 mg/2 mL Outcome: Tolerated well, no immediate complications Post-injection instructions were reviewed with the patient and the patient voiced understanding of these instructions. SIGN OUT No specimen collected. No instruments, equipment or retained foreign bodies applicable. Post-procedure follow-up management communicated and Plan of Care Visit completed when applicable documented in this encounterSelect [facility] [place] NoteHNO ID: [id number] Author: Gary Vergara MD Service: ? Author Type: Physician Type: Progress Notes Filed: 02/09/2022 1:06 PM Note Text: [id number] Ms. Ramos was last seen forRight hip osteoarthritis and left knee pain secondary osteoarthritis two weeks. had the following plan implemented preoperative consultation for right total hip arthroplasty and a request for viscosupplementation for left knee was placed. She presents today for Synvisc of the Left Knee. She reports that she is going on vacation and wants to discuss timing of the injections. Review of Systems Constitutional: Negative for fever. Respiratory: Negative for cough and shortness of breath. Cardiovascular: Negative for chest pain. History: PAIN EVALUATION 02/09/2022 0833 Pain Level: 5 Pain Location: Knee-Left Description: Aching Duration Amount of Time: ? ongoing Frequency: Continuous Intervention/Comfort measure: Medication;Other: See comment pain rub The patient denies swelling, warmth, discharge, drainage, fevers, chills, sweats. She reports compliance with therapy, sling/splint/ambulatory device/dressing/wound care, and the use of medications. Previous treatments have included viscosupplementation. She reports no change in past medical AND surgical history, medications, allergies, social history, family history and review of systems since last visit, with the exception of the following: None Radiographs: Last XR Knee - Impression Only XR KNEE GENERAL 4V AP BOTH/PA BOTH/LAT/MERC LT Exam End: 10/29/2021 3:07 PM (Final result) Impression: IMPRESSION: Osteoarthrosis of the left knee. Water Filter Cleaner: BARBARA Transcribe Date/Time: Oct 29 2021 3:19P ... Complete Results Physical Examination: Inspection Skin Positive: Valgus alignment. Incision No evidence of surgical incisions. Atrophy No evidence of muscular atrophy. Range of Motion Knee 5-110 degrees Patella Decreased patellar mobility Palpation Effusion 1+ effusion Tenderness lateral joint line Crepitance Positive palpable patellofemoral and lateral compartment crepitance Meniscus Negative medial and lateral Isma's test Stability Positive varus instability, remainder of stability exam is normal Procedure: Large Joint Arthro/Inj: L knee joint Informed Consent Consent Obtained: Verbal [place] Protocol A moment to CARE was completed. SIGN IN Personnel directly involved with the procedure wore the appropriate PPE. Special Equipment: N/A Patient/Surrogate Stated/Verified: Patient name, Date of , Relevant allergies and Intended procedure TIME OUT Intended patient and procedure match the source document(s). Consent documented and matches the intended procedure. Relevant labs, photos, and/or imaging studies have been reviewed. No relevant labs, photos, and/or imaging studies were applicable for review. Correct side/site marked and visible. Medications required for procedure verified. No fire risk assessment and interventions applicable. No implant(s) inserted. 02/09/2022 8:50 AM The procedure site was prepped in the usual sterile fashion. Site: L knee joint Medications: 12 mg betamethasone acetate-betamethasone sodium phosphate 6 mg/mL Anesthetics: 4 mL lidocaine (PF) 10 mg/mL (1 %) Outcome: Tolerated well, no immediate complications Post-injection instructions were reviewed with the patient and the patient voiced understanding of these instructions. SIGN OUT No specimen collected. No instruments, equipment or retained foreign bodies applicable. Post-procedure follow-up management communicated and Plan of Care Visit completed when applicable Assessment: 1. Persistent left knee pain secondary to lateral compartment osteoarthritis. She would not be able to present for her second viscosupplementation injection for 2 weeks I recommended a corticosteroid injection to help with the current inflammation in the knee and then initiate viscosupplementation upon her return from her vacation. Feel this will provide the most consistent dose of the physical supplement. She understands and agrees. Plan: 1. Injection left knee with corticosteroid as noted above 2. Continue independent exercise program 3. Follow-up as scheduled for first of 3 [place]isc [place] [id number] NoteHNO ID: [id number] Author: Gary Vergara MD Service: ? Author Type: Physician Type: Progress Notes Filed: 02/05/2022 3:49 PM Note Text: CONSULT ORTHOPAEDIC: HIP PRIMARY CARE PHYSICIAN: Malinda Leon APRN.ED MANAGER REFERRING PROVIDER: Noble Hopper MD [address] [place] [phone] ASSESSMENT AND PLAN: Impression: Right Hip Severe Degenerative Osteoarthritis, Primary Crissy Ramos has radiograph and physical exam evidence of degenerative joint disease and wishes to pursue surgery. This patient appears to have sufficient symptoms to warrant surgical intervention and is an appropriate candidate for right Primary Total Hip Arthroplasty as evidenced by six months of unsuccessful non-operative treatment as outlined in the HPI below and progressive symptoms. Progressive symptoms include: Pain impacting sleep or causing fatigue Pain worsened by weight bearing Pain effecting living situation Pain limiting ability to stay fit and healthy Unable to ambulate 2 blocks without significant pain and dysfunction. We had a lengthy discussion regarding the risk and benefit of surgery, the alternatives, limitations and personnel involved. These included but were not limited to infection, persistent pain, instability, nerve injury, blood clots, and medical complications. We also discussed the pre-operative course, surgery itself and rehabilitation. Ainsley-operative blood management and transfusion issues were discussed, and options clearly outlined. The patient has consented to the use of the banked allogenic blood if medically necessary. The patient has elected to schedule surgery at this time or intends to call the office with a surgical date. Shared decision making occurred while obtaining informed consent. The patient will be scheduled for a pre-operative education class at which time they will have their nasal swab completed and will be given CHG cloths along with the verbal and written instructions for their use. Patient has been instructed and has been scheduled or will call to schedule attendence in one of the total joint perioperative classes offered prior to proceeding with JOAQUIN.. The patient has been ordered: No orders placed today. CONSULTS: IMPACT/PACE Consult for preoperative clearance. ACTIVE PROBLEM LIST Essential Hypertension Other Specified Hypothyroidism Arthritis of Left Knee SUBJECTIVE CHIEF COMPLAINT: Hip Pain HPI: Crissy Ramos is a 66 year old patient here for evaluation and management of Right hip pain.Crissy Ramos has had progressive problems with the hip(s) constantly over the past several year(s) interfering with activities which include walking 2 blocks, doing housekeeping/laundry, participating in family activities, enjoying hobbies, exercise, rising from a sitting position, standing for prolonged periods of time and getting in and out of a car. The problem began limiting activities 7-12 months ago. Currently the pain in the joint is rated at 6 out of 10 with minimal activity. The pain is chronic and constant and is located in the right groin. The pain is described as stabbing. Relieving factors include no relieving factors. There is no specific incident that brought about this pain. Crissy Ramos also complains of left knee pain that is worse with activity. Has had corticosteroid injections in the past with temporary relief of her pain.. FUNCTIONAL STATUS: Walk indoors, such as around the house (1.75 METs) Do light work around the house, such as dusting or washing dishes (2.70 METs) Take care of self, that is eating, dressing, bathing, using the toilet (2.75 METs) Total Joint Athroplasty - Risk Calculator PREVIOUS TREATMENTS: Medical: OTC NSAIDS for 3 Months or Greater (Aleve), Steroid Injections Right Hip Physical Therapy: Activities Modified and PT Three Months or Greater 1-2 times per week REVIEW OF SYSTEMS: PAIN ASSESSMENT: See HPI. MUSCULOSKELETAL: See HPI. Risk Factors for Total Joint Arthroplasty (TJA) Obesity normal High: BMI > 40 Moderate: BMI 30-40 Normal: BMI < 30 Diabetes normal High: A1C > 8 Moderate: A1C 7-8 Normal: A1C < 7 Smoking normal High: Current smoker Normal: Non smoker Anemia normal High: Hgb < 11.5 (women) N/A: Hgb >= 11.5 (women) Nutritional Status normal High: Alb<3.4, or prealb<15, or serum transferrin<200, or total lymphocyte count<1500 Normal: normal labs COPD normal High: dx of COPD Normal: no dx of COPD MRSA normal High: dx of MRSA or positive lab test Normal: no MRSA CKD normal High: eGFR<60 Moderate: eGFR 60-89 Normal: eGFR>90 Hx of DVT / PE normal High: dx of DVT / PE Normal: no dx of DVT / PE Narcotics Use normal High:NarxCare >=300 Moderate: 100-299 Normal: 0-99 TIFF normal High: dx of TIFF N/A: no dx of TIFF Coagulation normal High:PT Sec>13, or PT INR>1.3, or APTT>32.4, or Plt ct<150k Moderate: on anticoag but none of the above Normal: none Other Risk Factors (more content not included)...[facility] 01-26-2022 NoteHNO ID: [id number] Author: RT Tobi(R) Service: Radiology Author Type: Technologist Type: Progress Notes Filed: 01/26/2022 9:10 AM Note Text: Radiology Service Progress Note PATIENT NAME: Crissy Ramos DATE OF SERVICE: January 26, 2022 TIME: 9:10 AM PATIENT IDENTITY VERIFICATION COMPLETED USING TWO (2) IDENTIFIERS: Name and Date of confirmed by patient verbally. FALL SCREENING: Has the patient had 2 falls in the last year or 1 fall with injury or currently using an Ambulatory Assistive Device (Walker, Cane, Wheelchair, Crutches, etc.)? No PATIENT GENDER DATA: Female. status: : No status: N/A PATIENT RELEVANT IMPLANT DATA REVIEWED: Not Applicable RADIOLOGY DEPARTMENT: General X-ray: Exam(s) Completed: Pelvis X-Ray: Pelvis with Hip Right PERIPHERAL IV DATA: Not applicable SIGNED BY: RT Tobi(R) January 26, 2022 9:10 [id number] NoteHNO ID: [id number] Author: RT Imani(R) Service: Radiology Author Type: Technologist Type: Progress Notes Filed: 12/14/2021 2:35 PM Note Text: Radiology Service Progress Note PATIENT NAME: Crissy Ramos DATE OF SERVICE: December 14, 2021 TIME: 2:32 PM PATIENT IDENTITY VERIFICATION COMPLETED USING TWO (2) IDENTIFIERS: Name and Date of confirmed by patient verbally and Name and Date of confirmed by identification band. FALL SCREENING: Has the patient had 2 falls in the last year or 1 fall with injury or currently using an Ambulatory Assistive Device (Walker, Cane, Wheelchair, Crutches, etc.)? No PATIENT GENDER DATA: Female. status: : No status: NO. PATIENT RELEVANT IMPLANT DATA REVIEWED: Not Applicable RADIOLOGY DEPARTMENT: General X-ray: Exam(s) Completed: THERAPEUTIC JOINT INJECTION 3ml 1% lidocaine, 2ml 40mg/ml kenalog PERIPHERAL IV DATA: Not applicable SIGNED BY: RT Imani(R) December 14, 2021 2:32 PMLima City [id number] NoteHNO ID: [id number] Author: RT Imani(R) Service: Radiology Author Type: Technologist Type: Progress Notes Filed: 12/14/2021 2:39 PM Note Text: RADIOLOGY SERVICE PROGRESS NOTE DATE OF SERVICE: December 14, 2021 TIME OF SERVICE: 1355 EVENT: Patient became dizzy and blacked out - did not fall as 2 technologists were there supporting the patient ADDITIONAL EVENT DETAILS: Radiology nurses came in to assess the patient as well as Dr Oscar Chandler and Dr Lin. SIGNATURE: RT Imani(R) PATIENT NAME: Crissy Ramos DATE: December 14, 2021 TIME: 2:38 PM PAGER/CONTACT #:[facility] [id number] NoteHNO ID: [id number] Author: Noble Hopper PA-C Service: ? Author Type: Physician Felt Hat Steamer Type: Progress Notes Filed: 10/29/2021 3:50 PM Note Text: CONSULT ORTHOPAEDIC: HIP PRIMARY CARE PHYSICIAN: Malinda Leon APRN.ED MANAGER REFERRING PROVIDER: Kenna Kam DC [address] [facility] [address] Large Joint Arthro/Inj: L knee joint Informed Consent Consent Obtained: Verbal [place] Protocol A moment to CARE was completed. SIGN IN Personnel directly involved with the procedure wore the appropriate PPE. Special Equipment: N/A Patient/Surrogate Stated/Verified: Patient name, Date of , Relevant allergies and Intended procedure TIME OUT Intended patient and procedure match the source document(s). Consent documented and matches the intended procedure. Relevant labs, photos, and/or imaging studies have been reviewed. Correct side/site marked and visible. Medications required for procedure verified. No fire risk assessment and interventions applicable. No implant(s) inserted. 10/29/2021 3:49 PM The procedure site was prepped in the usual sterile fashion. Site: L knee joint Medications: 12 mg betamethasone acetate-betamethasone sodium phosphate 6 mg/mL Anesthetics: 3 mL lidocaine (PF) 10 mg/mL (1 %) Outcome: Tolerated well, no immediate complications Post-injection instructions were reviewed with the patient and the patient voiced understanding of these instructions. SIGN OUT No specimen collected. No instruments, equipment or retained foreign bodies applicable. Post-procedure follow-up management communicated and Plan of Care Visit completed when applicable Noble Hopper PA-C ASSESSMENT AND PLAN: Impression: Right Hip Moderate Degenerative Osteoarthritis, Primary Left knee severe degenerative osteoarthritis, primary Crissy Ramos has radiograph and physical exam evidence of degenerative joint disease and wishes to consider options before making a decision for surgery. This patient appears to have sufficient symptoms to warrant surgical intervention and is an appropriate candidate for left total knee. The patient has been ordered: Hip Injection ,right Knee injection, left CONSULTS: Patient does not require consults for optimization at this time. ACTIVE PROBLEM LIST Essential Hypertension Other Specified Hypothyroidism Arthritis of Left Knee SUBJECTIVE CHIEF COMPLAINT: Right hip pain and left knee pain HPI: Crissy Ramos is a 66 year old patient here for evaluation and management of Right hip and left knee pain. Crissy Ramos has had progressive problems with the joints (s) most of the day over the past 5 year(s) interfering with activities which include doing housekeeping/laundry, enjoying hobbies, exercise, dressing and climbing stairs. The problem began limiting activities 3+ years ago. Currently the pain in the joint is rated at 6 out of 10 with moderate activity. The pain is constant and is located in the right groin and outer aspect of the hip and left outside of the knee. The pain is described as penetrating, severe and sharp. Relieving factors include rest and over the counter medication. There is no specific incident that brought about this pain. Crissy Ramos has no additional complaints. FUNCTIONAL STATUS: Climb a flight of stairs or walk up a hill (5.50 METs) Total Joint Arthroplasty: Risk Calculator Crissy Ramos has a 6.17% chance of NOT returning home at discharge for a Primary total Hip replacement. Crissy's estimated Length of Stay is 1 day. Crissy's 30 day chance of readmission is 1.03%. Readmission Probability 1.03 % (within 30 days following surgery) Estimated LOS 1 day Discharge Disposition Probability D/C to Home 93.83 % D/C to SNF 6.17 % These calculations are based on the following factors: - 66 years of age - sex is not male - BMI of 29 kg/m2 - [facility]xCare score of 0 - 0 hospitalizations in the last 12 months - no history of heart disease - no history of diabetes - no history of COPD - no history of anemia - preoperative ambulation: independent community distances - 1 step(s) to enter home - bed location is NOT on the first floor - bath location is NOT on the first floor - caregiver is consistent - home is not more than 150 miles away - PROMIS-10 Mental Health T score not available - Marital status: PREVIOUS TREATMENTS: Medical: OTC NSAIDS for 3 Months or Greater (Aleve), cortisone and visco injection left knee with good relief Physical Therapy: PT Three Months or Greater 1-2 times per week and working with chiropractor REVIEW OF SYSTEMS: PAIN ASSESSMENT: See HPI. MUSCULOSKELETAL: See HPI. Risk Factors for Total Joint Arthroplasty (TJA) Obesity Unknown Risk High: BMI > 40 Moderate: BMI 30-40 Normal: BMI < 30 Diabetes normal High: A1C > 8 Moderate: A1C 7-8 Normal: A1C < 7 Smoking normal High: Current smoker Normal: Non smoker Anemia normal High: H (more content not included)...[facility] 10-29-2021 NoteHNO ID: [id number] Author: MIRNA Law Service: Radiology Author Type: Technologist Type: Progress Notes Filed: 10/29/2021 3:10 PM Note Text: Radiology Service Progress Note PATIENT NAME: Crissy Ramos DATE OF SERVICE: October 29, 2021 TIME: 3:10 PM PATIENT IDENTITY VERIFICATION COMPLETED USING TWO (2) IDENTIFIERS: Name and Date of confirmed by patient verbally. FALL SCREENING: Has the patient had 2 falls in the last year or 1 fall with injury or currently using an Ambulatory Assistive Device (Walker, Cane, Wheelchair, Crutches, etc.)? No PATIENT GENDER DATA: Female. status: : No status: NO. PATIENT RELEVANT IMPLANT DATA REVIEWED: Not Applicable RADIOLOGY DEPARTMENT: General X-ray: Exam(s) Completed: Lower Extremity X-Ray(s): Knee, AP / Lat / Tunne / Merchant Left and Wt. Bearing PERIPHERAL IV DATA: Not applicable SIGNED BY: MIRNA Law October 29, 2021 3:10 [facility]Evaluation [facility]* Diagnosis Pain- Primary Generalized pain documented in this encounter [facility] note* Diagnosis Left knee pain, unspecified chronicity- Primary documented in this encounter [facility] noteThere may be information available, but it has not been provided by the sender.[facility] Work Phone: Evaluation note* Diagnosis Primary osteoarthritis of left knee- Primary Primary localized osteoarthrosis, lower leg documented in this encounter [facility] note* Diagnosis Primary osteoarthritis of left knee- Primary Primary localized osteoarthrosis, lower leg documented in this encounter [facility] note* Diagnosis Onset Date Resolution Status GERD (gastroesophageal reflux disease) acute Hypothyroidism (acquired) [place] Hypertension [facility] Work Phone: Evaluation note* Diagnosis Onset Date Resolution Status GERD (gastroesophageal reflux disease) acute Hypothyroidism (acquired) [place] Hypertension chronic Acute bronchospasm acute Cystitis acute [facility] Work Phone: Evaluation note* Diagnosis Onset Date Resolution Status Hypothyroidism (acquired) [place] [facility] Work Phone: Instructions* Instruction Description Start Date Completed [facility] Work Phone: Reason for referral (narrative)* Diagnostic Procedure Only (Routine) Status Reason Specialty Diagnoses / Procedures Referred By Contact Referred To Contact Authorized Auto-Generated Referral XR IMAGING Diagnoses Pain Procedures XR KNEE GENERAL 4V AP BOTH/PA BOTH/LAT/MERC LT KNEE AP-WGT/LAT/MERCHA NT Gary Vergara MD [address] [address] Xr Imaging [facility] for referral (narrative)* Diagnostic Procedure Only (Routine) - Pending Review Specialty Diagnoses / Procedures Referred By Contac t Referred To Contact XR IMAGING Diagnoses Left knee pain, unspecified chronicity Procedures XR KNEE GENERAL 4V AP BOTH/PA BOTH/LAT/MERC LT KNEE AP-WGT/LAT/MERCHANT Noble Hopper PA-C [address] [place] [address] Xr Imaging Referral ID Status Reason Start Date Expiration Date Visits Requested Visits Authorized [id number] Pending Review Auto-Generat ed Referral 10/29/2022 1 1 [facility] (narrative)No reason for referral information availableWOur [facility] of [facility] Work Phone: Advance Directives No Advanced Directives Records FoundDocuments on File Type Date Recorded 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 Advance Directive(s) 06/21/2019 10:43 PM Advance Directive(s) 06/20/2019 6:54 AM Documents on File Type Date Recorded 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 Advance Directive(s) 06/21/2019 10:43 PM Advance Directive(s) 06/20/2019 6:54 AM Summary Purpose Family History No Family History Records Found Relationship Condition Age at Onset Recorded Date/T marylu Not Specified Cardiac disease Unknown Family history of throat cancer Unknown Hypertension Unknown Unknown Chief Complaint Chief Complaint Description Start Date right hip pain Preliminary chief co mplaint data, not yet signed by the author as of Medications Administered Section Inactive Administered Medications - up to 3 most recent administrations Medication Order MAR Action Action Date Dose Rate Site hylan G-F 20 2 mL injection (SYNVISC) 2 mL, Injection - FOR ORTHO USE ONLY, ONE TIME INJECTION, 1 dose, Starting on Mon03/02/22 at 0852, Until Mon03/02/22 at 0852 Given 03/02/2022 8:52 AM EDT 2 mL Inactive Administered Medications - up to 3 most recent administrations Medication Order MAR Action Action Date Dose Rate Site hylan G-F 20 2 mL injection (SYNVISC) 2 mL, Injection - FOR ORTHO USE ONLY, ONE TIME INJECTION, 1 dose, Starting on Mon03/16/22 at 0804, Until Mon03/16/22 at 0804 Given 03/16/2022 8:04 AM EDT 2 mL Chief Complaint and Reason for Visit Chief Complaint medication refills & talk about other things Reason for Visit GERD (gastroesophage al reflux disease) Hypothyroidism (acquired) Hypertension Chief Complaint medication refills & talk about other things F/up W/medication & UTI Reason for Visit GERD (gastroesophage al reflux disease) Hypothyroidism (acquired) Hypertension Acute bronchospasm Cystitis Chief Complaint Ear complaints/Sinus /medrefills Reason for Visit Hypothyroidism (acqu ired) Hypertension Chief Complaint Admit Date Sinus infection/Congestion March 20, 2025 5:43pm Reason for Visit Admit Date Bronchitis March 20, 2025 5:43pm Hypothyroidism (acquired) March 20, 2025 5:43pm Maxillary sinusitis, acute March 20, 2025 5:43pm Hypertension March 20, 2025 5:43pm Additional Source Comments Source Comments (unrecognize d section and content) In the event this informatio n is protected by the Federal Confidentiality of Alcohol and Drug Abuse Patient Records regulations: The Federal rules restrict any use of the information to criminally investigate or prosecute any alcohol or drug abuse patient.[facility] the event this information is protected by the Federal Confidentiality of Alcohol and Drug Abuse Patient Records regulations: The Federal rules restrict any use of the information to criminally investigate or prosecute any alcohol or drug abuse patient.[facility]In the event this information is protected by the Federal Confidentiality of Alcohol and Drug Abuse Patient Records regulations: The Federal rules restrict any use of the information to criminally investigate or prosecute any alcohol or drug abuse patient.[facility]onIn the event this information is protected by the Federal Confidentiality of Alcohol and Drug Abuse Patient Records regulations: The Federal rules restrict any use of the information to criminally investigate or prosecute any alcohol or drug abuse patient.[facility] [place]onIn the event this information is protected by the Federal Confidentiality of Alcohol and Drug Abuse Patient Records regulations: The Federal rules restrict any use of the information to criminally investigate or prosecute any alcohol or drug abuse patient.[facility] INFORMATION SOURCE (unrecogn ized section and content) DATE CREATED AUTHOR 08/19/2021 [facility] DATE CREATED AUTHOR AUTHOR'S ORGANIZ ATION 01/27/2022 [facility] DATE CREATED AUTHOR AUTHOR'S ORGANIZ ATION 03/23/2022 [facility] DATE CREATED AUTHOR AUTHOR'S ORGANIZ ATION 03/30/2025 [facility] Care Teams (unrecognized sec tion and content) [employer] Tech Relationship Specialty Start Date End Date Malinda Leon APRN.ED MANAGER [address] [place] [address] PCP - General Family Practice 06/11/19 [employer] Relationship Specialty Start Date End Date Malinda Leon APRN.ED MANAGER [address] [place], [place] [id number] PCP - General Family Practice 06/11/19 [employer] Tech Relationship Specialty Start Date End Date Malinda Leon APRN.ED MANAGER [address] [facility] [address] [place] [id number] PCP - General Family Practice 06/11/19 Team Status: Active Member Role Status Dates Malinda Leon WEBSITE DEVELOPER, WEBSITE DEVELOPER-C Family Provider Active Malinda Leon WEBSITE DEVELOPER, WEBSITE DEVELOPER-C Primary Care Provider Active Team Status: Inactive Member Role Status Dates Malinda Leon WEBSITE DEVELOPER, WEBSITE DEVELOPER-C Primary Care Pr ovider, Attending Provider, Referring Provider Active Team Status: Inactive Member Role Status Dates Malinda Leon WEBSITE DEVELOPER, WEBSITE DEVELOPER-C Primary Care Provider, Attend ing Provider Active Team Status: Inactive Member Role Status Dates Malinda Leon WEBSITE DEVELOPER, WEBSITE DEVELOPER-C Primary Care Provider Active Start: March 20, 2025 End: March 20, 2025 Malinda Leon WEBSITE DEVELOPER, WEBSITE DEVELOPER-C Attending Provider Active Start: March 20, 2025 End: March 20, 2025 Malinda Leon WEBSITE DEVELOPER, WEBSITE DEVELOPER-C Referring Provider Active Start: March 20, 2025 End: March 20, 2025 Reason for Visit (unrecogniz ed section and content) Reason Comments synvisc #3 Specialty Diagnoses / Procedures Referred By Contac t Referred To Contact ORTHOPAEDIC SURGERY Diagnoses Unilateral primary osteoarthritis, left knee left knee osteoarthritis Procedures SYNVISC OR SYNVISC-ONE synvisc left knee Gary Vergara MD [address] [place] [address] [facility] [address] [address] Referral ID Status Reason Start Date Expiration Date V isits Requested Visits Authorized [id number] Authorized 02/07/2022 11/19/2022 99 99 Reason For Visit Description Start Date New - 1st visit with practice Preliminary reason f or visit data, not yet signed by the author as of right hip pain Reason Comments synvisc #1 Goals (unrecognized section and content) Goals may be documented in a n alternate sectionGoals may be documented in an alternate sectionGoals may be documented in an alternate sectionGoals may be documented in an alternate section FOR RECORDS PERTAINING TO PATIENTS WHO ARE OR HAVE BEEN ENROLLED IN A CHEMICAL DEPENDENCY/SUBSTANCEABUSE PROGRAM, SOME INFORMATION MAY BE OMITTED. This clinical summary was aggregated from multiple sources. Caution should be exercised in using it in the provision of clinical care. This summary normalizes information from multiple sources, and as a consequence, information in this document may materially change the coding, format and clinical context of patient data. In addition, data may be omitted in some cases. CLINICAL DECISIONS SHOULD BE BASED ON THE PRIMARY CLINICAL RECORDS. [facility]. provides no warranty or guarantee of the accuracy or completeness of information in this document.
== END | disposition home or self-care (01) ==
PROVIDERS: PCP Nurse Practitioner; Referring Provider Nurse Practitioner; Visit Provider Nurse Practitioner
DX: R35.0 Frequency of micturition (principal); R30.0 Dysuria; N30.90 Cystitis, unspecified without hematuria
CPT/HCPCS: 87086; 87088